=== PATIENT | female | born 1980 | race Caucasian/White ===

== ENCOUNTER 2016-06-25 17:05 | Emergency (ER) | payer MEDICAID ==
[~2016-06-25] VITALS: Ht 160 cm; Wt 78.0 kg
[~2016-06-25 17:05] MED LIST: PRED10PA2 PO; TUSSSUS2 PO; VENTAER INH; ZITHTAB PO
[2016-06-25 17:29] VITALS: BP 126/81; PULSE 95; RESP 16; TEMP 98.7; O2SAT 99
--- NOTE | 2016-06-25 19:42 | PD ---
HPI Chief Complaint: Back/ Neck Pain or Injury Time Seen by Provider: 19:41 Travel History International Travel<30 days: No Contact w/Intl Traveler<30days: No Traveled to known affect area: No History of Present Illness HPI 35-year-old female presents to the emergency department for evaluation of right- sided lower back pain for 1 day. Patient states that she was carrying a 50 pound box and lost her ear nose and throat specialist on it and it started to slip so she reached down to catch it which jerked her lower back. States that she's had pain in her lower back since this occurred. Pain is mostly on the right lower side. States that the pain is aggravated with movement of her back and her legs. Denies any alleviating factors. States she has taken [id number] Motrin and Excedrin without improvement of symptoms. Denies any prior injury or trauma to her lower back. Denies , she is status post hysterectomy. No other complaints. PFSH Past Medical History Cancer: No Cardiovascular Problems: No Diminished Hearing: No Gastrointestinal Disorders: No Genitourinary: Yes Musculoskeletal: No Neurologic: No Psychiatric: No Reproductive: Yes (Hx of ovarian cysts) Respiratory: No Migraines: Yes Tetanus Vaccination: < 5 Years Influenza Vaccination: No ?: Not : 4 Para: 2 Miscarriage: 1 : 1 Ovarian Cysts: Yes Tubal Ligation: Yes Past Surgical History Gynecologic Surgery: Yes (LEEP, FALLOPIAN TUBE) Hysterectomy: Yes Other Surgery: Yes Social History Alcohol Use: Yes (SOCIAL-beer) Tobacco Use: Yes (1/2 PPD) Substance Use: No (denies) Allergies-Medications (Allergen,Severity, Reaction): Coded Allergies: No Known Allergies (Verified , 06/25/16) Reported Meds & Prescriptions Reported Meds & Active Scripts Active Lortab (Hydrocodone-Acetaminophen) 5-325 Mg Tab 1 Tab PO Q6H PRN Robaxin (Methocarbamol) 750 Mg Tab 750 Mg PO QID 7 Days Naproxen 500 Mg Tab 500 Mg PO BID 7 Days Review of Systems Except as stated in HPI: all other systems reviewed are Neg Physical Exam Narrative GENERAL: Well-nourished and well-developed pleasant female patient in moderate amount of pain but no acute distress. SKIN: Warm and dry. HEAD: Normocephalic and atraumatic. EYES: No injection, drainage, or hyphema noted. PERRLA. EOMI. ENT: No nasal drainage noted. Oropharynx is clear. NECK: Supple and the trachea is midline. CARDIOVASCULAR: Regular rate and rhythm. RESPIRATORY: Breath sounds are equal bilaterally with no accessory muscle use, wheezing, rhonchi, or crackles. MUSCULOSKELETAL: No obvious deformities, swelling, cyanosis, or ecchymosis is present throughout the upper and lower extremities. Patient has full range of motion without any signs of neurovascular compromise. SLR positive. Strength 5 /5 upper and lower extremities equal bilaterally. BACK: Patient has tenderness to palpation of her midline lumbar spine and right lumbar paraspinal muscles. No obvious deformities or crepitus noted throughout the thoracic and lumbar vertebrae. NEUROLOGICAL: Awake, alert, and oriented. Normal speech and gait. Cranial nerves are grossly intact. Data Data Last Documented VS Vital Signs Date Time Temp Pulse Resp B/P Pulse Ox O2 Delivery O2 Flow Rate FiO2 06/25/16 19:08 95 16 06/25/16 17:29 98.7 126/81 99 Orders Acetamin-Hydrocod 325-5 Mg (Rolfe 5-325 (06/25/16 19:45) Ketorolac Inj (Toradol Inj) (06/25/16 19:45) Spine, Lumbar Comp W/Obliq (06/25/16 19:43) MDM Medical Decision Making Medical Screen Exam Complete: Yes Emergency Medical Condition: Yes Differential Diagnosis Discogenic pain versus herniated disc versus muscle strain versus muscle spasm versus compression fracture Narrative Course 35-year-old female presents to the emergency department for evaluation of low back pain status post catching a heavy box. Patient is afebrile, vital signs are stable. No focal neurologic deficits. She does have tenderness over the lumbar spine and therefore we'll get an x-ray to rule out a compression fracture. Patient is administered Toradol 60 mg IM and Lortab 5325 mg. X-ray of the lumbar spine is negative for any acute abnormalities. Patient has had some improvement of symptoms with medication. Discussed supportive care. We'll prescribe her anti-inflammatories, muscle relaxers and pain medication. She is advised to follow-up with her PCP if her symptoms persist. Patient verbalizes understanding and agreement with treatment plan. Diagnosis Primary Impression: Acute low back pain Qualified Code: M54.5 - Acute right-sided low back pain without sciatica Referrals: Primary Care Physician Patient Instructions: Acute Low Back Pain (ED), General Instructions Departure Forms: Tests/Procedures, Work Release Enter return to work date: Jun 28, 2016 Additional Instructions: Apply ice or heat to alleviate symptoms. Take medications as prescribed with food and a full glass of water. Do not take Lortab for Robaxin with alcohol or while driving. Follow-up with your Primary Care Physician. Return to the ED for any acute worsening of symptoms. Med/Other Pt SpecificInfo: Prescription(s) given Scripts Hydrocodone-Acetaminophen (Lortab)5-325 Mg Tab1 Tab PO Q6H PRN (PAIN GREATER THAN 6) #15 TAB Ref 0 Prov:Sam Naidu MD 06/25/16 Methocarbamol (Robaxin)750 Mg [id number] Mg PO QID 7 Days Ref 0 Prov:Sam Naidu MD 06/25/16 Naproxen 500 Mg Arg417 Mg PO BID 7 Days Ref 0 Prov:Sam Naidu MD 06/25/16 Disposition: 01 DISCHARGE HOME Condition: Stable Luma Neville Jun 25, 2016 19:41
[2016-06-25] MEDS ORDERED: KETOROLAC TROMETHAMINE 60 MG/2 ML (IM) VIAL IM ONE (19:45)
[2016-06-25] MEDS ORDERED: ACETAMINOPHEN/HYDROcodone 325 MG/5 MG TAB PO ONE (19:45)
--- NOTE | 2016-06-25 20:32 | RADHPO ---
EXAM DATE/TIME: 06/25/2016 19:46 [facility] COMPARISON: No previous studies available for comparison. INDICATIONS : Patient hurt her back while moving yesterday. Right sided pain. MEDICAL HISTORY : None. SURGICAL HISTORY : None. ENCOUNTER: Initial ACUITY: 2 days PAIN SCORE: 10/10 LOCATION: Right lower back. FINDINGS: The lumbar vertebral bodies are normal in height. They are normally aligned. There is some mild marginal osteophytes seen at the anterior superior aspect of L4 and to a lesser degree L5. The disc spaces are grossly preserved. The fact joints are aligned. The sacroiliac joints are nor mal. CONCLUSION: Mild marginal osteophytes. Tan Rachel MD on June 25, 2016 at 20:19 Board Certified Radiologist. This report was verified electronically.
[2016-06-25] MEDS ORDERED: NAPR500T PO (20:35)
[2016-06-25] MEDS ORDERED: HYDR-3533 PO ×2 (20:35→20:40)
[2016-06-25] MEDS ORDERED: ROBA750T PO (20:35)
== END 2016-06-25 20:54 | disposition home or self-care (01) ==
LOC: PHED 17:05 → PHEFT 20:54
DX: M54.5 Low back pain (principal); F17.200 Nicotine dependence, unspecified, uncomplicated; Z87.448 Personal history of other diseases of urinary system; Z87.42 Personal history of other diseases of the female genital tract; Z86.69 Personal history of other diseases of the nervous system and sense organs; X50.0XXA Overexertion from strenuous movement or load, initial encounter
CPT/HCPCS: 72110; 96372; 99283; J1885

== ENCOUNTER 2016-10-16 19:23 | Emergency (ER) | payer MEDICAID ==
[~2016-10-16] VITALS: Ht 172.7 cm; Wt 80.0 kg
[~2016-10-16 19:23] MED LIST changes: +HYDR-3533 PO; +NAPR500T PO; -PRED10PA2 PO; +ROBA750T PO; -TUSSSUS2 PO; -VENTAER INH; -ZITHTAB PO
[2016-10-16 19:26] VITALS: BP 128/83; PULSE 94; RESP 16; TEMP 98.5; O2SAT 99
--- NOTE | 2016-10-16 22:22 | PD ---
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 Patient says she gets frequent claire infection. 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 However this time when she tried to call her OB she found out that they did not accept her insurance anymore and hence they will not see her. She tried to take an over- the-counter Monistat suppository but patient says that made her symptoms worse. She says she is very uncomfortable with this. Vital signs otherwise stable. Patient had her hysterectomy last year. [facility] Past Medical History Narrative Medical List of her past medical, surgical, social and family history is reviewed from the nursing note. Cancer: No Cardiovascular Problems: No Diminished Hearing: No Gastrointestinal Disorders: No Genitourinary: Yes Musculoskeletal: No Neurologic: No Psychiatric: No Reproductive: Yes (Hx of ovarian cysts) Respiratory: Yes Migraines: Yes Tetanus Vaccination: Unknown Influenza Vaccination: No ?: Not : 4 Para: 2 Miscarriage: 1 : 1 Ovarian Cysts: Yes Tubal Ligation: Yes Past Surgical History Gynecologic Surgery: Yes (LEEP, FALLOPIAN TUBE) Hysterectomy: Yes Other Surgery: Yes Social History Alcohol Use: Yes (SOCIAL-beer) Tobacco Use: Yes (/2 PPD) Substance Use: No (denies) Allergies-Medications (Allergen,Severity, Reaction): Coded Allergies: No Known Allergies (Verified , 06/25/16) Comments No known drug allergies. Reported Meds & Prescriptions Reported Meds & Active Scripts Active No Active Prescriptions or Reported Medications Narrative Medication List of her home medications reviewed from the nursing note. Review of Systems Except as stated in HPI: all other systems reviewed are Neg Physical Exam Narrative GENERAL: Awake, alert, obese, moderate discomfort SKIN: Focused skin assessment warm/dry. HEAD: Atraumatic. Normocephalic. EYES: Pupils equal and round. No scleral icterus. No injection or drainage. ENT: No nasal bleeding or discharge. Mucous membranes pink and moist. NECK: Trachea midline. No JVD. CARDIOVASCULAR: Regular rate and rhythm. No murmur appreciated. RESPIRATORY: No accessory muscle use. Clear to auscultation. Breath sounds equal bilaterally. GASTROINTESTINAL: Abdomen soft, non-tender, nondistended. Hepatic and splenic margins not palpable. MUSCULOSKELETAL: No obvious deformities. No clubbing. No cyanosis. No edema. : External inspection was within normal limit. Speculum exam shows absent cervix due to the hysterectomy. There is thick cheesy discharge in the vaginal vault. NEUROLOGICAL: Awake and alert. No obvious cranial nerve deficits. Motor grossly within normal limits. Normal speech. PSYCHIATRIC: Appropriate mood and affect; insight and judgment normal. Data Data Last Documented VS Vital Signs Date Time Temp Pulse Resp B/P Pulse Ox O2 Delivery O2 Flow Rate FiO2 10/16/16 21:32 16 10/16/16 19:26 98.5 94 128/83 99 Orders Wet Prep Profile (10/16/16 22:24) Fluconazole (Diflucan) (10/16/16 23:45) Labs Laboratory Tests Test 10/16/16 23:30 Clue Cells (Wet Prep) NONE SEEN Vaginal Trichomonas (Wet Prep) NONE SEEN Vaginal Yeast (Wet Prep) NONE SEEN MDM Medical Decision Making Medical Screen Exam Complete: Yes Emergency Medical Condition: Yes Medical Record Reviewed: Yes Differential Diagnosis Vaginal candidiasis, vaginitis Narrative Course 12:21 AM patient was given 1 dose of Diflucan by mouth in the emergency room. She'll be discharged home. Procedures EKG Prior to Arrival: No Diagnosis Primary Impression: Vaginal candidiasis Referrals: Primary Care Physician Additional Instructions: Please return to the ER if the condition worsens or any other new concerns. Try to keep the area dry by wearing loose clothing. Scripts No Active Prescriptions or Reported Meds Disposition: 01 DISCHARGE HOME Condition: Stable Yogesh Pereira MD Oct 16, 2016 22:22 Yogesh Pereira MD Oct 16, 2016 22:22
[2016-10-16] MEDS ORDERED: FLUCONAZOLE 100 MG TAB PO ONE (23:45)
[2016-10-18] MEDS ORDERED: CLOT1CRE23 VAGINAL (21:49)
[2016-10-18] MEDS ORDERED: VIST50CA PO (21:49)
[2016-10-18] MEDS ORDERED: TRIA0.1L TOPICAL (21:49)
== END 2016-10-17 00:27 | disposition home or self-care (01) ==
LOC: NEPD 19:23
DX: B37.3 Candidiasis of vulva and vagina (principal); F17.210 Nicotine dependence, cigarettes, uncomplicated
CPT/HCPCS: 87210; 87491; 87591; 99283

== ENCOUNTER 2016-10-18 21:17 | Emergency (ER) | payer MEDICAID ==
[~2016-10-18] VITALS: Ht 160 cm; Wt 80.0 kg
[2016-10-18 21:21] VITALS: BP 134/97; PULSE 89; RESP 16; TEMP 98.1; O2SAT 100
--- NOTE | 2016-10-18 21:45 | PD ---
HPI . 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 She has used Monistat [id number] which actually made her symptoms worse. She was then seen in the emergency department and given Diflucan 2 days ago. She states that her symptoms continued to get worse rather than better. She is complaining of severe vaginal itching. She has not used any other over-the- counter or homeopathic treatments such as Benadryl, cool compresses. Patient is unaware of any exacerbating or relieving factors. PFSH Past Medical History Cancer: No Cardiovascular Problems: No Diminished Hearing: No Gastrointestinal Disorders: No Genitourinary: Yes Musculoskeletal: No Neurologic: No Psychiatric: No Reproductive: Yes (Hx of ovarian cysts) Respiratory: Yes Migraines: Yes ?: Not : 4 Para: 2 Miscarriage: 1 : 1 Ovarian Cysts: Yes Tubal Ligation: Yes Past Surgical History Gynecologic Surgery: Yes (LEEP, FALLOPIAN TUBE) Hysterectomy: Yes Other Surgery: Yes Social History Alcohol Use: Yes (SOCIAL-beer) Tobacco Use: Yes (1/2 PPD) Substance Use: No (denies) Allergies-Medications (Allergen,Severity, Reaction): Coded Allergies: No Known Allergies (Verified , 10/18/16) Reported Meds & Prescriptions Reported Meds & Active Scripts Active No Active Prescriptions or Reported Medications Review of Systems Except as stated in HPI: all other systems reviewed are Neg General / Constitutional: No: Fever, Chills Genitourinary: Positive: Discharge, No: Pelvic Pain Physical Exam Narrative GENERAL: Awake and alert and in no acute distress. The patient looks pretty uncomfortable. SKIN: Warm and dry. HEAD: Atraumatic. Normocephalic. EYES: Pupils equal and round. NECK: Trachea midline. CARDIOVASCULAR: Regular rate and rhythm. RESPIRATORY: No accessory muscle use. : She has erythema and edema of the external genitalia. She has a thick, cottage cheese-like discharge. MUSCULOSKELETAL: No obvious deformities. No edema. NEUROLOGICAL: Awake and alert. No obvious cranial nerve deficits. Motor grossly within normal limits. Normal speech. PSYCHIATRIC: Appropriate mood and affect; insight and judgment normal. Data Data Last Documented VS Vital Signs Date Time Temp Pulse Resp B/P Pulse Ox O2 Delivery O2 Flow Rate FiO2 10/18/16 21:21 98.1 89 16 134/97 100 MDM Medical Decision Making Medical Screen Exam Complete: Yes Emergency Medical Condition: Yes Medical Record Reviewed: Yes (patient was seen 2 days ago in the emergency department. She had a wet prep at that time which was negative. That study will not be repeated tonight.) Differential Diagnosis Differential diagnosis of vaginal discharge includes but is not limited to physiologic discharge, yeast infection, bacterial vaginosis, sexually transmitted disease. Narrative Course Patient presents with vaginal discharge and itching. Her exam is compatible with yeast infection. Diagnosis Primary Impression: Vaginal candidiasis Patient Instructions: General Instructions, Vaginitis (ED) Departure Forms: Tests/Procedures Med/Other Pt SpecificInfo: Prescription(s) given Scripts Hydroxyzine Pamoate (Vistaril)50 Mg Cap50 Mg PO QID PRN (itching) #30 CAP Ref 0 Prov:Leti Caceres MD 10/18/16 Triamcinolone Topical 0.1% Lotn1 Applic TOPICAL QID #60 ML Ref 0 Prov:Leti Caceres MD 10/18/16 Clotrimazole Vaginal (Clotrimazole 7 Vaginal)1% Cream1 Appl VAGINAL HS #45 GM Ref 0 Prov:Leti Caceres MD 10/18/16 Disposition: 01 DISCHARGE HOME Condition: Stable Leti Caceres MD Oct 18, 2016 21:45
[2016-10-18] MEDS ORDERED: CLOT1CRE23 VAGINAL (21:49)
[2016-10-18] MEDS ORDERED: VIST50CA PO (21:49)
[2016-10-18] MEDS ORDERED: TRIA0.1L TOPICAL (21:49)
[2016-10-18] MEDS ORDERED: TRIAMCINOLONE ACETONIDE 0.1% CREAM 15 GM TOPICAL ONE (22:00)
== END 2016-10-18 22:19 | disposition home or self-care (01) ==
LOC: PHED 21:17
DX: B37.3 Candidiasis of vulva and vagina (principal); F17.210 Nicotine dependence, cigarettes, uncomplicated
CPT/HCPCS: 99284

== ENCOUNTER 2017-01-09 10:40 | Emergency (ER) | payer MEDICAID ==
[~2017-01-09] VITALS: Ht 160 cm; Wt 79.0 kg
[~2017-01-09 10:40] MED LIST changes: +CLOT1CRE23 VAGINAL; -HYDR-3533 PO; -NAPR500T PO; -ROBA750T PO; +TRIA0.1L TOPICAL; +VIST50CA PO
[2017-01-09 10:42] VITALS: BP 147/94; PULSE 96; RESP 16; TEMP 98.6; O2SAT 99
[2017-01-09] MEDS ORDERED: IBUP-232 PO (11:28)
[2017-01-09] MEDS ORDERED: ROBA750T PO (11:28)
--- NOTE | 2017-01-09 11:39 | PD ---
HPI Chief Complaint: Musculoskeletal Complaint Time Seen by Provider: 11:20 Travel History International Travel<30 days: No Contact w/Intl Traveler<30days: No Traveled to known affect area: No History of Present Illness HPI 36-year-old right-handed female presents to the emergency room for evaluation of right hand pain for the past several weeks but worsened 4 days ago. 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 She took 3 days off of work because the pain was so severe but states it hasn't been improving. Patient has been taking Tylenol and Motrin without relief. States she could not longer take the pain that she came to the emergency room. She also had pain in her left hand but states right hand is worse. Left hand pain is localized to the knuckles. Right hand pain is generalized. Patient states she occasionally wakes up with her hand well closed and she has to pop it back open. This especially happens with her right fourth finger. No chronic medical conditions or daily medications. PFSH Past Medical History Cancer: No Cardiovascular Problems: No Diminished Hearing: No Gastrointestinal Disorders: No Genitourinary: Yes Musculoskeletal: No Neurologic: No Psychiatric: No Reproductive: Yes (Hx of ovarian cysts) Respiratory: Yes Migraines: Yes Tetanus Vaccination: > 5 Years Influenza Vaccination: No ?: Not : 4 Para: 2 Miscarriage: 1 : 1 Ovarian Cysts: Yes Tubal Ligation: Yes Past Surgical History Gynecologic Surgery: Yes (LEEP, FALLOPIAN TUBE) Hysterectomy: Yes Other Surgery: Yes Social History Alcohol Use: Yes (Occ.) Tobacco Use: Yes (1/2 PPD) Substance Use: No Allergies-Medications (Allergen,Severity, Reaction): Coded Allergies: No Known Allergies (Verified , 01/09/17) Reported Meds & Prescriptions Reported Meds & Active Scripts Active Ibuprofen 600 Mg Tab 600 Mg PO Q8HR PRN Robaxin (Methocarbamol) 750 Mg Tab 750 Mg PO Q8HR Review of Systems Except as stated in HPI: all other systems reviewed are Neg Physical Exam Narrative GENERAL: Well-nourished, well-developed female in no acute distress. Afebrile. Ambulatory. SKIN: Focused skin assessment warm/dry. No erythema or ecchymosis. HEAD: Normocephalic. EYES: No scleral icterus. No injection or drainage. NECK: Supple, trachea midline. No JVD or lymphadenopathy. CARDIOVASCULAR: Regular rate and rhythm without murmurs, gallops, or rubs. RESPIRATORY: Breath sounds equal bilaterally. No accessory muscle use. MUSCULOSKELETAL: No cyanosis, or edema. 2+ radial pulse. Less than 2 second capillary refill distally. Full range of motion of the right hand. No bony tenderness to palpation. Radial, ulnar, and median nerves intact. Strength 4/ 5 secondary to pain. Data Data Last Documented VS Vital Signs Date Time Temp Pulse Resp B/P (MAP) Pulse Ox O2 Delivery O2 Flow Rate FiO2 01/09/17 10:42 98.6 96 16 147/94 (111) 99 Orders Orders Splint Or Brace Apply/Monitor (01/09/17 11:28) MDM Medical Decision Making Medical Screen Exam Complete: Yes Emergency Medical Condition: Yes Medical Record Reviewed: Yes Differential Diagnosis Tenosynovitis, carpal tunnel syndrome, trigger finger Narrative Course 36 year-old right handed female presents to the emergency room for evaluation of right hand pain and spasming for the past 4 days. 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 She has tried uuky-ohy-kpuaovd conservative treatment without success. States pain is severe. Occasionally her fingers get locked in a closed position and she has to pop them back open, especially the right fourth finger. No trauma or injury. Right upper x-ray is neurovascularly intact with 2+ radial pulse. Radial, ulnar, and median nerves intact. Full range of motion. No indication for imaging. History and physical exam are consistent with trigger finger. Patient will be treated for possible muscle spasms. She was placed in Velcro wrist splint and told to follow-up with a primary care physician for cortisone injections into the finger and referral to hand surgeon. Told to return for worsening symptoms. She understands and agrees to plan. Diagnosis Primary Impression: Trigger finger Qualified Codes: M65.341 - Trigger finger, right ring finger Additional Impression: Muscle spasm Referrals: Primary Care Physician Additional Instructions: Rest and drink plenty of fluids. Take Robaxin as directed, as needed for pain. Take ibuprofen with food as directed, as needed for pain. Apply ice to the affected area for 20 minutes at a time, as needed for pain and swelling. Follow-up with a primary care physician. Return to the emergency room for worsening symptoms. Med/Other Pt SpecificInfo: Prescription(s) given Scripts Ibuprofen (Ibuprofen) 600 Mg Tab 600 MG PO Q8HR Y for PAIN, #21 TAB 0 Refills Prov: Yogesh Pereira MD 01/09/17 Methocarbamol (Robaxin) 750 Mg Tab 750 MG PO Q8HR for Muscle Spasm, #21 TAB 0 Refills Prov: Yogesh Pereira MD 01/09/17 Disposition: 01 DISCHARGE HOME Condition: Stable Yuly Ponce Jan 09, 2017 11:39
== END 2017-01-09 11:50 | disposition home or self-care (01) ==
LOC: PHEFT 10:40
DX: M65.341 Trigger finger, right ring finger (principal); M62.838 Other muscle spasm; F17.210 Nicotine dependence, cigarettes, uncomplicated
CPT/HCPCS: 99283; L3908

== ENCOUNTER 2017-01-16 16:11 | Emergency (ER) | payer MEDICAID ==
[~2017-01-16] VITALS: Ht 160 cm; Wt 81.0 kg
[~2017-01-16 16:11] MED LIST changes: -CLOT1CRE23 VAGINAL; +IBUP-232 PO; +ROBA750T PO; -TRIA0.1L TOPICAL; -VIST50CA PO
[2017-01-16 16:34] VITALS: BP 157/81; PULSE 99; RESP 16; TEMP 98.4; O2SAT 99
[2017-01-16] MEDS ORDERED: CYCL1TAB29 PO (17:00)
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
== END 2017-01-16 17:07 | disposition home or self-care (01) ==
LOC: PHEFT 16:11
DX: G56.01 Carpal tunnel syndrome, right upper limb (principal); F17.210 Nicotine dependence, cigarettes, uncomplicated
CPT/HCPCS: 99281

== ENCOUNTER 2017-01-24 17:37 | Observation (INO) | payer MEDICAID ==
[~2017-01-24] VITALS: Ht 160 cm; Wt 88.3 kg
[~2017-01-24 17:37] MED LIST changes: +CYCL1TAB29 PO
[2017-01-24 17:44] VITALS: BP 131/74; PULSE 116; RESP 20; TEMP 98.1; O2SAT 99
[2017-01-24 19:23] VITALS: BP 131/80; PULSE 120; RESP 18; O2SAT 99
[2017-01-24 19:51] LABS: AUTOMATED NEUTROPHIL # 6.3 TH/MM3 (1.8-7.7); BASOPHIL # 0.1 TH/MM3 (0-0.2); BASOPHIL % 0.8 % (0.0-2.0); EOSINOPHIL # 0.2 TH/MM3 (0-0.4); EOSINOPHIL % 2.3 % (0.0-4.0); HEMATOCRIT 41.7 % (35.0-46.0); HEMO FLAGS DIFF FINAL; LYMPH % 16.1 % (9.0-44.0); LYMPHOCYTE # 1.4 TH/MM3 (1.0-4.8); MEAN CELL VOLUME 92.6 FL (80.0-100.0); MEAN CORPUSCULAR HEMOGLOBIN 32.1 PG (27.0-34.0); MEAN CORPUSCULAR HGB CONC 34.7 % (32.0-36.0); MONO % 7.5 % (0.0-8.0); NEUT % 73.3 % (16.0-70.0); PLATELET COUNT 233 TH/MM3 (150-450); RED CELL DISTRIBUTION WIDTH 12.1 % (11.6-17.2); WHITE BLOOD COUNT 8.6 TH/MM3 (4.0-11.0)
[2017-01-24] MEDS ORDERED: SODIUM CHLOR 0.9% 1000 ML INJ 1,000 ML IV ONE ×2 (20:00→22:00)
[2017-01-24] MEDS ORDERED: ONDANSETRON HCL 4 MG/2 ML VIAL IV PUSH ONE (20:00)
[2017-01-24] MEDS ORDERED: MORPHINE SULFATE 4 MG/ML INJ IV PUSH ONE (20:00)
[2017-01-24 20:04] LABS: CHLORIDE 103 MEQ/L (98-107); POTASSIUM 3.5 MEQ/L (3.5-5.1); SODIUM (NA) 136 MEQ/L (136-145)
[2017-01-24 20:08] LABS: ANION GAP 8 MEQ/L (5-15); BICARBONATE 25.3 MEQ/L (21.0-32.0)
[2017-01-24 20:09] LABS: BLOOD UREA NITROGEN 10 MG/DL (7-18)
[2017-01-24 20:11] LABS: ALT (GPT) 81 U/L (10-53); AST (GOT) 38 U/L (15-37)
[2017-01-24 20:12] LABS: GLOMERULAR FILTRATION RATE 79 ML/MIN (>89)
[2017-01-24 20:13] LABS: TOTAL BILIRUBIN ADULT 0.5 MG/DL (0.2-1.0)
[2017-01-24 20:14] LABS: ALKALINE PHOSPHATASE 94 U/L (45-117)
[2017-01-24 20:53] LABS: BLOOD, URINE LARGE (NEG); GLUCOSE,URINE NEG (NEG); KETONE, URINE NEG (NEG); NITRITE,URINE POS (NEG); PH, URINE 5.5 (5.0-8.5)
[2017-01-24 20:57] LABS: URINE COLOR YELLOW (YELLW/STRAW)
[2017-01-24 20:58] LABS: WBC, URINE 100-200 /hpf (0-5)
[2017-01-24 20:59] LABS: BACTERIA, URINE MANY /hpf; COMMENT (UR) CULTURE INDICATED; CULTURE IF INDICATED CULTURE INDICATED; SQUAMOUS EPITHELIAL CELL URINE > 8 /hpf (0-5)
[2017-01-24] MEDS ORDERED: cefTRIAXone INJ 1,000 MG in SODIUM CHLORIDE 0.9% INJ 100 ML IV ONE (21:15)
[2017-01-24] MEDS ORDERED: KETOROLAC TROMETHAMINE 30 MG/ML (IVP) VIAL IV PUSH ONE (21:15)
[2017-01-24 21:27] VITALS: BP 95/67; PULSE 87; RESP 16; TEMP 98.7; O2SAT 100
--- NOTE | 2017-01-24 21:53 | PD ---
HPI Chief Complaint: Abdominal Pain Time Seen by Provider: 19:49 Travel History International Travel<30 days: No Contact w/Intl Traveler<30days: No Traveled to known affect area: No History of Present Illness HPI 36-year-old female presents to the emergency department for complaint of left lower quadrant abdominal pain and left flank pain since last evening. Subjective chills no fever. Nausea no vomiting. Diarrhea without melena or hematochezia. Patient denies any dietary indiscretion well water ingestion or foreign travel. Patient denies any dysuria frequency urgency hematuria. No vaginal discharge or vaginal bleeding. Patient reports history of ovarian cancer and underwent complete total vaginal hysterectomy salpingo-oophorectomy and reportedly did not require chemotherapy or radiation therapy. Patient denies any previous history of colitis or diverticulosis or diverticulitis. No respiratory illness symptoms. PFSH Past Medical History Narrative Medical Ovarian cyst menorrhagia elective TV 2016 path negative for malignancy; tobacco use Cancer: No Cardiovascular Problems: No Diminished Hearing: No Gastrointestinal Disorders: No Genitourinary: Yes Musculoskeletal: No Neurologic: No Psychiatric: No Reproductive: Yes (Hx of ovarian cysts) Respiratory: Yes Migraines: Yes Tetanus Vaccination: > 5 Years Influenza Vaccination: Yes ?: Not : 4 Para: 2 Miscarriage: 1 : 1 Ovarian Cysts: Yes Tubal Ligation: Yes Past Surgical History Gynecologic Surgery: Yes (LEEP, FALLOPIAN TUBE) Hysterectomy: Yes Other Surgery: Yes Social History Alcohol Use: Yes (Occ.) Tobacco Use: Yes (1/2 PPD) Substance Use: No Allergies-Medications (Allergen,Severity, Reaction): Coded Allergies: No Known Allergies (Verified , 01/24/17) Reported Meds & Prescriptions Reported Meds & Active Scripts Active Flexeril (Cyclobenzaprine HCl) 10 Mg Tab 10 Mg PO TID Ibuprofen 600 Mg Tab 600 Mg PO Q8HR PRN Robaxin (Methocarbamol) 750 Mg Tab 750 Mg PO Q8HR Review of Systems Except as stated in HPI: all other systems reviewed are Neg General / Constitutional: No: Fever, Chills HENT: No: Congestion Cardiovascular: No: Chest Pain or Discomfort Respiratory: No: Shortness of Breath Gastrointestinal: Positive: Nausea, Diarrhea, Abdominal Pain (LLQ) Genitourinary: Positive: Flank Pain (left), No: Urgency, Frequency, Dysuria, Hematuria, Decreased Urinary Output, Pelvic Pain, Discharge, Vaginal Bleeding Musculoskeletal: No: Myalgias, Arthralgias Skin: No Rash Neurologic: No: Weakness Endocrine: No: Heat Intolerance Hematologic/Lymphatic: No: Easy Bruising Physical Exam Narrative GENERAL: Well-developed well-nourished female in no acute distress no respiratory distress SKIN: Warm and dry. HEAD: Normocephalic. EYES: No scleral icterus. No injection or drainage. NECK: Supple, trachea midline. No JVD or lymphadenopathy. CARDIOVASCULAR: Regular rate and rhythm without murmurs, gallops, or rubs. RESPIRATORY: Breath sounds equal bilaterally. No accessory muscle use. GASTROINTESTINAL: Abdomen soft, left lower quadrant tenderness to palpation without guarding or rebound nondistended. MUSCULOSKELETAL: No cyanosis, or edema. BACK: Nontender without obvious deformity. Mild left CVA tenderness. Data Data Last Documented VS Vital Signs Date Time Temp Pulse Resp B/P (MAP) Pulse Ox O2 Delivery O2 Flow Rate FiO2 01/24/17 21:27 98.7 87 16 95/67 (76) 100 01/24/17 19:23 Room Air Orders Orders Complete Blood Count With Diff (01/24/17 19:32) Comprehensive Metabolic Panel (01/24/17 19:32) Urinalysis - C+S If Indicated (01/24/17 19:32) Iv Access Insert/Monitor (01/24/17 19:32) Lipase (01/24/17 19:32) Sodium Chlor 0.9% 1000 Ml Inj (Ns 1000 M (01/24/17 20:00) Ondansetron Inj (Zofran Inj) (01/24/17 20:00) Morphine Inj (Morphine Inj) (01/24/17 20:00) Urine Culture (01/24/17 20:45) Ct Abd/Pel W/O Iv Contrast (01/24/17 ) Ceftriaxone Inj (Rocephin Inj) (01/24/17 21:15) Ketorolac Inj (Toradol Inj) (01/24/17 21:15) Sodium Chlor 0.9% 1000 Ml Inj (Ns 1000 M (01/24/17 22:00) Labs Laboratory Tests Test 01/24/17 19:30 01/24/17 20:45 White Blood Count 8.6 TH/MM3 Red Blood Count 4.50 MIL/MM3 Hemoglobin 14.5 GM/DL Hematocrit 41.7 % Mean Corpuscular Volume 92.6 FL Mean Corpuscular Hemoglobin 32.1 PG Mean Corpuscular Hemoglobin Concent 34.7 % Red Cell Distribution Width 12.1 % Platelet Count 233 TH/MM3 Mean Platelet Volume 7.9 FL Neutrophils (%) (Auto) 73.3 % Lymphocytes (%) (Auto) 16.1 % Monocytes (%) (Auto) 7.5 % Eosinophils (%) (Auto) 2.3 % Basophils (%) (Auto) 0.8 % Neutrophils # (Auto) 6.3 TH/MM3 Lymphocytes # (Auto) 1.4 TH/MM3 Monocytes # (Auto) 0.6 TH/MM3 Eosinophils # (Auto) 0.2 TH/MM3 Basophils # (Auto) 0.1 TH/MM3 CBC Comment DIFF FINAL Differential Comment Blood Urea Nitrogen 10 MG/DL Creatinine 0.83 MG/DL Random Glucose 106 MG/DL Total Protein 8.2 GM/DL Albumin 3.4 GM/DL Calcium Level 8.3 MG/DL Alkaline Phosphatase 94 U/L Aspartate Amino Transf (AST/SGOT) 38 U/L Alanine Aminotransferase (ALT/SGPT) 81 U/L Total Bilirubin 0.5 MG/DL Sodium Level 136 MEQ/L Potassium Level 3.5 MEQ/L Chloride Level 103 MEQ/L Carbon Dioxide Level 25.3 MEQ/L Anion Gap 8 MEQ/L Estimat Glomerular Filtration Rate 79 ML/MIN Lipase 83 U/L Urine Color YELLOW Urine Turbidity CLOUDY Urine pH 5.5 Urine Specific [place] 1.017 Urine Protein TRACE mg/dL Urine Glucose (UA) NEG mg/dL Urine Ketones NEG mg/dL Urine Occult Blood LARGE Urine Nitrite POS Urine Bilirubin NEG Urine Leukocyte Esterase LARGE Urine RBC 10-14 /hpf Urine WBC 100-200 /hpf Urine WBC Clumps FEW Urine Squamous Epithelial Cells > 8 /hpf Urine Bacteria MANY /hpf Urine Hyaline Casts /lpf Microscopic Urinalysis Comment CULTURE INDICATED MDM Medical Decision Making Medical Screen Exam Complete: Yes Emergency Medical Condition: Yes Medical Record Reviewed: Yes Interpretation(s) UA: Positive white blood cells clumped white blood cells bacteria RBCs leukocyte Estrace and nitrites; culture indicated Last Impressions Abdomen/Pelvis CT 01/24/17 0000 Signed Impressions: Service Date/Time: January 21:33 - CONCLUSION: Mild hydronephrosis, hydroureter and perinephric edema on the left of unclear etiology. The differential would include a recently passed calculus, a radiolucent stone and pyelonephritis. Tan Louie MD CBC & BMP Diagram 01/24/17 19:30 Total Protein 8.2, Albumin 3.4, Calcium Level 8.3 L, Alkaline Phosphatase 94, Aspartate Amino Transf (AST/SGOT) 38 H, Alanine Aminotransferase (ALT/SGPT) 81 H , Total Bilirubin 0.5 Vital Signs Date Time Temp Pulse Resp B/P (MAP) Pulse Ox O2 Delivery O2 Flow Rate FiO2 01/24/17 21:27 98.7 87 16 95/67 (76) 100 01/24/17 19:23 120 18 131/80 (97) 99 Room Air 01/24/17 17:44 98.1 116 20 131/74 (93) 99 Differential Diagnosis UTI, pyelonephritis, renal colic, diverticulitis, colitis, abscess, partial bowel obstruction, gastroenteritis, musculoskeletal pain Narrative Course IV access obtained specimens collected and sent for resulting CBC is automated differential values in normal range Metabolic panel eyes are grossly within normal limits Urinalysis is markedly abnormal with positive nitrates leukocyte Estrace WBCs clumped WBCs RBCs moderate bacteria culture indicated CT kidney stone protocol ordered @ 10:[address] kidney stone protocol shows some mild stranding about the left kidney mild hydronephrosis and hydroureter no obvious kidney stone ureterolithiasis identified possibly recently passed stone v non-radiopaque stone and pyelonephritis. Sepsis Criteria SIRS Criteria (2 or more): Heart rate over 90 Sepsis Criteria (SIRS+source): Infect source susp/known (urine) Melanie Rodriguez MD Jan 24, 2017 21:53
--- NOTE | 2017-01-24 21:55 | RADRPT ---
EXAM DATE/TIME: 01/24/2017 21:33 [facility] COMPARISON: CT ABDOMEN & PELVIS W/O CONTRAST, July 21, 2014, 1:58. INDICATIONS : Left lower quad and flank pain. ORAL CONTRAST: No oral contrast ingested. RADIATION DOSE: 14.91 CTDIvol (mGy) MEDICAL HISTORY : Ovarian cysts SURGICAL HISTORY : Hysterectomy. LEEP ENCOUNTER: Initial ACUITY: 1 day PAIN SCALE: 10/10 LOCATION: Left lower quadrant TECHNIQUE: Volumetric scanning of the abdomen and pelvis was performed. Using automated exposure control and ad justment of the mA and/or kV according to patient size, radiation dose was kept as low as reasonably achievable to obtain optimal diagnostic quality images. DICOM format image data is available electro nically for review and comparison. FINDINGS: LOWER LUNGS: The visualized lower lungs are clear. LIVER: Homogeneous density without lesion. There is no dilation of the biliary tree. No calcified gallston es. SPLEEN: Normal size without lesion. PANCREAS: Within normal limits. KIDNEYS: Very mild fat stranding seen around the left kidney. The left collecting system and ureter are mildly prominent. However, I don't see a stone. 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 ADRENAL GLANDS: Within normal limits. VASCULAR: There is no aortic aneurysm. BOWEL/MESENTERY: The stomach, small bowel, and colon demonstrate no acute abnormality. There is no free intraperitone al air or fluid. Normal appendix. ABDOMINAL WALL: Within normal limits. RETROPERITONEUM: There is no lymphadenopathy. BLADDER: No wall thickening or mass. No stone seen in the bladder. REPRODUCTIVE: Within normal limits. INGUINAL: There is no lymphadenopathy or hernia. MUSCULOSKELETAL: Within normal limits for patient age. CONCLUSION: Mild hydronephrosis, hydroureter and perinephric edema on the left of unclear etiology. The different ial would include a recently passed calculus, a radiolucent stone and pyelonephritis. Tan Louie MD on January 24, 2017 at 21:51 Board Certified Radiologist. This report was verified electronically.
[2017-01-24 22:29] VITALS: BP 127/85; PULSE 86; RESP 18; TEMP 98.7
[2017-01-24] MEDS ORDERED: SODIUM CHLORIDE 0.9% FLUSH 10 ML FLUSH IV FLUSH PRN (22:30)
[2017-01-24] MEDS ORDERED: NALOXONE HCL 0.4 MG/ML AMP IV PUSH PRN (22:30)
[2017-01-24] MEDS ORDERED: SODIUM CHLORIDE 0.9% FLUSH 10 ML FLUSH IVF PRN (22:30)
[2017-01-24 23:20] VITALS: BP 102/62; PULSE 83; RESP 16; O2SAT 100
[2017-01-25] VITALS (9 sets, daily range): BP systolic 107–172; BP diastolic 62–84; PULSE 78–89; RESP 16–20; TEMP 97.1–97.9; O2SAT 99–100
[2017-01-25] MEDS: SODIUM CHLOR 0.9% 1000 ML INJ 1,000 ML IV SCH ×2 (01:00→08:05)
[2017-01-25] MEDS: CIPROFLOXACIN 400 MG PREMIX 200 ML IV SCH ×3 (01:00→22:37)
[2017-01-25 06:00] LABS: AUTOMATED NEUTROPHIL # 4.3 TH/MM3 (1.8-7.7); BASOPHIL # 0.1 TH/MM3 (0-0.2); BASOPHIL % 0.9 % (0.0-2.0); EOSINOPHIL # 0.2 TH/MM3 (0-0.4); EOSINOPHIL % 3.5 % (0.0-4.0); HEMATOCRIT 35.7 % (35.0-46.0); HEMO FLAGS DIFF FINAL; LYMPHOCYTE # 1.5 TH/MM3 (1.0-4.8); MEAN CELL VOLUME 92.2 FL (80.0-100.0); MEAN CORPUSCULAR HGB CONC 34.7 % (32.0-36.0); MONO % 10.9 % (0.0-8.0); NEUT % 62.7 % (16.0-70.0); PLATELET COUNT 179 TH/MM3 (150-450); RED BLOOD COUNT 3.87 MIL/MM3 (4.00-5.30); WHITE BLOOD COUNT 6.9 TH/MM3 (4.0-11.0)
[2017-01-25 06:14] LABS: POTASSIUM 3.3 MEQ/L (3.5-5.1)
[2017-01-25] MEDS: MORPHINE SULFATE 4 MG/ML INJ IV PUSH PRN ×4 (06:42→20:38)
[2017-01-25 06:45] LABS: BICARBONATE 23.7 MEQ/L (21.0-32.0)
[2017-01-25] MEDS: SODIUM CHLORIDE 0.9% FLUSH 10 ML FLUSH IV FLUSH SCH ×4 (08:06→20:01)
[2017-01-25] MEDS: NICOTINE 14 MG/24 HR PATCH T-DERMAL SCH (10:04)
--- NOTE | 2017-01-25 11:01 | HHI.HP ---
[facility] Service [facility] Primary Care Physician No Primary Care Physician Admission Diagnosis pyelonephritis Diagnoses: (1) Left flank pain Diagnosis: Principal (2) Hydronephrosis Diagnosis: Principal (3) Hydroureter Diagnosis: Principal (4) Urinary tract infection Diagnosis: Principal (5) Hypokalemia Diagnosis: Principal Chief Complaint: Left flank pain Travel History International Travel<30 Days: No Contact w/Intl Traveler <30 Da: No Traveled to Known Affected Are: No History of Present Illness Written by Isidoro Kaye, acting as scribe for Dr. Rincon on 01/25/17 at 10:40. 36-year-old female with no significant chronic medical illnesses who presented to hospital because acute onset left flank pain. Patient states that she was in her normal state of health until 3 days ago when she had an episode of diarrhea in which she went to the restroom 5 times. After that she started developing some left flank pain and she laid down that evening. She had a difficult time sleeping and when she got up the next day she took her son to school and was not able to do anything throughout the day because of the flank pain. When her came home she came to the hospital for evaluation. The pain was described as a intermittent colic type pain in the left flank, pain started in the left lower abdomen and radiated up to the left flank. She had some nausea, denied any fever, chills, hematuria. She did have some dysuria. She states that she has not had any recurrent diarrhea. She has had a normal bowel movement. Patient had workup done in emergency department and CT scan did show hydronephrosis, hydroureter, perinephritic edema. This possibly could be related to a passed stone, radiolucent stone, and possible pyelonephritis. It was recommended by ER physician that the patient be observed in the hospital for further evaluation and management. Review of Systems Gastrointestinal: COMPLAINS OF: Abdominal pain, Diarrhea Genitourinary: COMPLAINS OF: Dysuria Except as stated in HPI: all other systems reviewed are Neg Past Family Social History Past Medical History Carpal tunnel Trigger finger History of ovarian cysts Past Surgical History Hysterectomy Leep procedure Reported Medications Reported Meds & Active Scripts Active Flexeril (Cyclobenzaprine HCl) 10 Mg Tab 10 Mg PO TID Ibuprofen 600 Mg Tab 600 Mg PO Q8HR PRN Robaxin (Methocarbamol) 750 Mg Tab 750 Mg PO Q8HR Allergies: Coded Allergies: No Known Allergies (Verified , 01/24/17) Family History Reviewed is significant for mother alive at age 54 with hypertension and Leomyoma sarcoma, father alive at age 57 with dementia Social History Patient continues smoke a half pack a cigarettes a day since she was 20 years old. Drinks alcohol occasionally. Denies any illicit drugs Physical Exam Vital Signs Vital Signs Date Time Temp Pulse Resp B/P (MAP) Pulse Ox O2 Delivery O2 Flow Rate FiO2 01/25/17 08:00 97.1 89 20 118/79 (92) 100 01/25/17 07:38 01/25/17 06:43 78 16 172/77 (108) 99 Room Air 01/25/17 05:41 87 16 107/62 (77) 100 Room Air 01/25/17 01:30 86 16 108/70 (83) 100 Room Air 01/25/17 01:30 100 21 01/24/17 23:20 83 16 102/62 (75) 100 Room Air 01/24/17 22:29 98.7 86 18 127/85 (99) Room Air 01/24/17 21:27 98.7 87 16 95/67 (76) 100 01/24/17 19:23 120 18 131/80 (97) 99 Room Air 01/24/17 17:44 98.1 116 20 131/74 (93) 99 Physical Exam GENERAL: Well-developed, well-nourished, in no acute distress. alert and orientated HEENT: Head is normocephalic without any lesions or masses noted. Facial features are symmetric. Eyes: Pupils equal round reactive to light. Extraocular muscles are intact. Conjunctivae were clear. Oropharyngeal: Pharynx without any erythema edema. Tongue is midline without deviation. Buccal mucosa is moist without any masses or lesions NECK: Supple without any masses. Trachea midline no deviation. No JVD, no bruits are appreciated CARDIAC: Regular rhythm, regular rate. S1/S2 are heard. No murmurs gallops or rubs. LUNGS: Clear to auscultation bilaterally. No wheeze, rhonchi or rales. No use of accessory muscles on inspiration or expiration. ABDOMEN: Soft, tenderness noted in left lower quadrant and left flank. Positive CVA tenderness on left side. Nondistended. Bowel sounds heard in all 4 quadrants. No organomegaly or masses. Negative rebound, negative guarding EXTREMITIES: No edema, pulses are equal bilaterally. No cyanosis or clubbing NEUROLOGY: Mood and affect appear appropriate. Cranial nerves II through XII grossly intact. Muscle strength 5/5 in upper and lower extremities bilaterally. Deep tendon reflexes are 2+ in upper and lower extremities bilaterally. Laboratory Laboratory Tests Test 01/24/17 19:30 01/24/17 20:45 01/25/17 05:35 White Blood Count 8.6 6.9 Red Blood Count 4.50 3.87 Hemoglobin 14.5 12.4 Hematocrit 41.7 35.7 Mean Corpuscular Volume 92.6 92.2 Mean Corpuscular Hemoglobin 32.1 32.0 Mean Corpuscular Hemoglobin Concent 34.7 34.7 Red Cell Distribution Width 12.1 12.0 Platelet Count 233 179 Mean Platelet Volume 7.9 7.9 Neutrophils (%) (Auto) 73.3 62.7 Lymphocytes (%) (Auto) 16.1 22.0 Monocytes (%) (Auto) 7.5 10.9 Eosinophils (%) (Auto) 2.3 3.5 Basophils (%) (Auto) 0.8 0.9 Neutrophils # (Auto) 6.3 4.3 Lymphocytes # (Auto) 1.4 1.5 Monocytes # (Auto) 0.6 0.7 Eosinophils # (Auto) 0.2 0.2 Basophils # (Auto) 0.1 0.1 CBC Comment DIFF FINAL DIFF FINAL Differential Comment Blood Urea Nitrogen 10 9 Creatinine 0.83 0.57 Random Glucose 106 94 Total Protein 8.2 Albumin 3.4 Calcium Level 8.3 7.6 Alkaline Phosphatase 94 Aspartate Amino Transf (AST/SGOT) 38 Alanine Aminotransferase (ALT/SGPT) 81 Total Bilirubin 0.5 Sodium Level 136 138 Potassium Level 3.5 3.3 Chloride Level 103 106 Carbon Dioxide Level 25.3 23.7 Anion Gap 8 8 Estimat Glomerular Filtration Rate 79 121 Lipase 83 Urine Color YELLOW Urine Turbidity CLOUDY Urine pH 5.5 Urine Specific [place] 1.017 Urine Protein TRACE Urine Glucose (UA) NEG Urine Ketones NEG Urine Occult Blood LARGE Urine Nitrite POS Urine Bilirubin NEG Urine Leukocyte Esterase LARGE Urine RBC 10-14 Urine WBC 100-200 Urine WBC Clumps FEW Urine Squamous Epithelial Cells > 8 Urine Bacteria MANY Urine Hyaline Casts Microscopic Urinalysis Comment CULTURE INDICATED Date/Time Source Procedure Growth Status 01/24/17 21:20 Blood Peripheral Aerobic Blood Culture Pending Received 01/24/17 21:20 Blood Peripheral Anaerobic Blood Culture Pending Received 01/24/17 20:45 Urine Clean Catch Urine Culture Pending Received Result Diagram: 01/25/17 0535 01/25/17 0535 Imaging Last Impressions Abdomen/Pelvis CT 01/24/17 0000 Signed Impressions: Service Date/Time: , January 24, 2017 21:33 - CONCLUSION: Mild hydronephrosis, hydroureter and perinephric edema on the left of unclear etiology. The differential would include a recently passed calculus, a radiolucent stone and pyelonephritis. MD Billie Rehman VTE Risk Assessment Caprini VTE Risk Assessment: No/Low Risk (score <= 1) Caprini Risk Assessment Model Point Value = 1 Point Value = 2 Point Value = 3 Point Value = 5 Age 41-60 Minor surgery BMI > 25 kg/m2 Swollen legs Varicose veins or History of unexplained or recurrent spontaneous Oral contraceptives or hormone replacement Sepsis (< 1 month) Serious lung disease, including pneumonia (< 1 month) Abnormal pulmonary function Acute myocardial infarction Congestive heart failure (< 1 month) History of inflammatory bowel disease Medical patient at bed rest Age 61-74 Arthroscopic surgery Major open surgery (> 45 min) Laparoscopic surgery (> 45 min) Malignancy Confined to bed (> 72 hours) Immobilizing plaster cast Central venous access Age >= 75 History of VTE Family history of VTE Factor V Leiden Prothrombin [id number] Lupus anticoagulant Anticardiolipin antibodies Elevated serum homocysteine Heparin-induced thrombocytopenia Other congenital or acquired thrombophilia Stroke (< 1 month) Elective arthroplasty Hip, pelvis, or leg fracture Acute spinal cord injury (< 1 month) Prophylaxis Regimen Total Risk Factor Score Risk Level Prophylaxis Regimen 0-1 Low Early ambulation 2 Moderate Order ONE of the following: *Sequential Compression Device (SCD) *Heparin 5000 units SQ BID 3-4 Higher Order ONE of the following medications: *Heparin 5000 units SQ TID *Enoxaparin/Lovenox 40 mg SQ daily (WT < 150 kg, CrCl > 30 mL/min) *Enoxaparin/Lovenox 30 mg SQ daily (WT < 150 kg, CrCl > 10-29 mL/min) *Enoxaparin/Lovenox 30 mg SQ BID (WT < 150 kg, CrCl > 30 mL/min) AND/OR *Sequential Compression Device (SCD) 5 or more Highest Order ONE of the following medications: *Heparin 5000 units SQ TID (Preferred with Epidurals) *Enoxaparin/Lovenox 40 mg SQ daily (WT < 150 kg, CrCl > 30 mL/min) *Enoxaparin/Lovenox 30 mg SQ daily (WT < 150 kg, CrCl > 10-29 mL/min) *Enoxaparin/Lovenox 30 mg SQ BID (WT < 150 kg, CrCl > 30 mL/min) AND *Sequential Compression Device (SCD) Assessment and Plan Assessment and Plan Hydronephrosis, hydroureter, perinephric edema Could be secondary to passed stone, radiolucent stone, pyelonephritis CT scan did indicate hydronephrosis, hydroureter, perinephric edema on the left with unclear etiology Continue IV fluids Consulted urology for recommendations Continue pain control Urinary tract infection/Pyelonephritis Patient was given Rocephin in emergency department Patient continued on Cipro Await urine culture for appropriate antibiotics Hypokalemia Continue monitor and replace as needed Chronic smoker Patient counseled on cessation Nicotine patch started DVT prevention: Low risk, early ambulation This note was transcribed by manisha aKye. I, Dr. Clement Gonzales personally performed the history, physical exam, and medical decision making; and confirmed the accuracy of the information in the transcribed note. Authenticated by Dr. Clement Gonzales on 01/25/17 at 10:54. Discussed Condition With Patient, nursing staff, and friend at bedside Isidoro Kaye Jan 25, 2017 11:01 Clement Perez MD Jan 25, 2017 11:58
[2017-01-25] MEDS ORDERED: POTASSIUM CHLORIDE 20 MEQ CONTROLLED RELEASE TAB PO ONE (11:30)
[2017-01-25] MEDS: NS + KCL 20 MEQ INJ 1,000 ML IV SCH ×2 (12:24→22:20)
[2017-01-25] MEDS ORDERED: oxyCODONE/ACETAMINOPHEN 5 MG/325 MG TAB PO PRN (12:30)
[2017-01-25] MEDS: oxyCODONE/ACETAMINOPHEN 5 MG/325 MG TAB PO PRN ×3 (13:22→22:39)
--- NOTE | 2017-01-25 18:30 | MB ---
cc: LIONEL STOCK DATE OF CONSULTATION 01/25/17 HISTORY OF PRESENT ILLNESS Ms. Verma is a 36-year-old female presented with some mild left-sided flank pain over the last few days, states the pain has been intermittent in nature, radiating from the lower left quadrant to the left flank. She did have some nausea but denied any fever or chills or gross hematuria. She denies any prior history of stones. She states in the past she has had a urinary tract infection but none recently. CT scan demonstrated in the ER suggested a possibly recently passed stone versus pyelonephritis with mild hydroureter noted. PAST MEDICAL HISTORY Her medical history includes carpal tunnel. History of ovarian cyst. PAST SURGICAL HISTORY Noted for hysterectomy and a LEEP procedure as well as a trigger finger. MEDICATIONS For medications please refer to the chart. ALLERGIES She has no known drug allergies. FAMILY HISTORY Noted for hypertension and dementia. SOCIAL HISTORY She smokes a half-pack of cigarettes a day and drinks occasionally. Denies any illicit drug use. REVIEW OF SYSTEMS Notes left-sided flank pain with lower abdominal pain and nausea. Denies fever or chills, gait disturbances, bleeding disorders. Denies chest pain. Denies shortness of breath. Denies diarrhea or constipation at present. Denies any skin lesions. Denies any psychiatric problems. Denies heat or cold intolerance. The remaining review of systems were reviewed and are negative. PHYSICAL EXAMINATION VITAL SIGNS: Temperature is 97.9, heart rate 86, respiratory rate 20, 113/77 is her blood pressuer. GENERAL: She is a well-developed, well-nourished 36-year-old female in no acute stress. HEENT: Normocephalic, atraumatic. Pupils equal, round, reactive to light. NECK: Neck is supple. HEART: Rate regular rate and rhythm. LUNGS: Clear. ABDOMEN: Soft, nontender, nondistended. There is mild left CVA tenderness noted. : Normal female external genitalia is noted. EXTREMITIES: Show no cyanosis, clubbing or edema. LABORATORY DATA White count is noted to be 6.9, hemoglobin 12.4, hematocrit 35.7, platelet count 179, sodium is 138, potassium 3.3, chloride 106, CO2 is 23.7, BUN of 9, creatinine 0.57, glucose 121. Urinalysis shows 100-200 white cells with 10-14 red cells per high-power field, nitrite is positive. IMAGING STUDIES Again, imaging studies suggest mild left hydronephrosis, hydroureter with perinephric edema. Differential includes recently passed stone and pyelonephritis. ASSESSMENT This is a 36-year-old female with probable pyelonephritis or recently passed stone. Continue with IV fluids, pain management and IV antibiotics. No intervention required at this time. If stone is found would send for analysis. Thank you for the consult and allowing me to participate in the care of this patient. Lionel JAVED/STEFANIE /2:01 PM /6:11 PM
[2017-01-26 01:53] VITALS: BP 106/80; PULSE 82; RESP 14; TEMP 97.7; O2SAT 95
[2017-01-26] MEDS: MORPHINE SULFATE 4 MG/ML INJ IV PUSH PRN (02:02)
[2017-01-26] MEDS: oxyCODONE/ACETAMINOPHEN 5 MG/325 MG TAB PO PRN ×4 (07:44→20:45)
[2017-01-26] MEDS: REMOVE OLD PATCH T-DERMAL SCH (07:44)
[2017-01-26] MEDS: SODIUM CHLORIDE 0.9% FLUSH 10 ML FLUSH IV FLUSH SCH ×4 (07:44→20:47)
[2017-01-26] MEDS: NICOTINE 14 MG/24 HR PATCH T-DERMAL SCH (07:44)
[2017-01-26 08:00] VITALS: BP 137/96; PULSE 87; RESP 17; TEMP 98.5; O2SAT 94
[2017-01-26] MEDS: NS + KCL 20 MEQ INJ 1,000 ML IV SCH ×2 (10:02→20:41)
[2017-01-26] MEDS: CIPROFLOXACIN 400 MG PREMIX 200 ML IV SCH ×2 (10:09→22:58)
[2017-01-26 10:37] LABS: BICARBONATE 23.5 MEQ/L (21.0-32.0)
[2017-01-26 12:00] VITALS: BP 132/81; PULSE 92; RESP 18; TEMP 98.3; O2SAT 96
[2017-01-26] MEDS: DOCUSATE SODIUM 50 MG/SENNA 8.6 MG TAB PO SCH (12:04)
--- NOTE | 2017-01-26 15:23 | HHI.PR ---
Subjective Remarks Patient complains of cramps and still c/o flank pain denies fevers/chills denies cp/sob denies diarrhea Objective Vitals Vital Signs Date Time Temp Pulse Resp B/P (MAP) Pulse Ox O2 Delivery O2 Flow Rate FiO2 01/26/17 12:00 98.3 92 18 132/81 (98) 96 01/26/17 09:00 16 01/26/17 08:00 98.5 87 17 137/96 (110) 94 01/26/17 02:15 18 01/26/17 01:53 97.7 82 14 106/80 (89) 95 01/25/17 20:10 97.3 86 16 115/84 (94) 100 01/25/17 19:50 100 21 01/25/17 17:24 100 01/25/17 17:03 97.9 85 20 112/78 (89) 100 I/O 01/25/17 01/25/17 01/25/17 01/26/17 01/26/17 01/26/17 07:00 15:00 23:00 07:00 15:00 23:00 Intake Total 1250 ml 811 ml 1000 ml 946 ml 250 ml Balance 1250 ml 811 ml 1000 ml 946 ml 250 ml Intake Oral 250 ml IV Total 1000 ml 811 ml 1000 ml 946 ml 250 ml # Voids 7 1 Result Diagram: 01/25/17 0535 01/26/17 1017 Imaging Last Impressions Abdomen/Pelvis CT 01/24/17 0000 Signed Impressions: Service Date/Time: January 21:33 - CONCLUSION: Mild hydronephrosis, hydroureter and perinephric edema on the left of unclear etiology. The differential would include a recently passed calculus, a radiolucent stone and pyelonephritis. Tan Louie MD Objective Remarks AAOx3 with mild distress due to pain S12S2 (+) Clear lungs BL mild tenderness to palpation of lower abdomen nop edema in lower extremities Procedures None Medications and IVs Current Medications Medications (Trade) Dose Ordered Sig/Jake Route Start Time Stop Time Status Last Admin (NS Flush) 2 ml BID IV FLUSH 01/25/17 09:00 (NS Flush) 2 ml UNSCH PRN IVF 01/24/17 22:30 (NS Flush) 2 ml UNSCH PRN IV FLUSH 01/24/17 22:30 (NS Flush) 2 ml BID IV FLUSH 01/25/17 09:00 UNV (Narcan Inj) 0.4 mg UNSCH PRN IV PUSH 01/24/17 22:30 Ciprofloxacin/ Dextrose 200 ml @ 200 mls/hr Q12H IV 01/24/17 23:00 01/26/17 10:09 (Habitrol 14 Mg Patch.24 Hr) 1 patch DAILY T-DERMAL 01/25/17 09:00 01/26/17 07:44 Miscellaneous Information 1 DAILY T-DERMAL 01/26/17 09:00 01/26/17 07:44 Potassium Chloride/Sodium Chloride 1,000 ml @ 100 mls/hr Q10H IV 01/25/17 11:30 01/26/17 10:02 (Percocet 5-325 Mg) 1 tab Q4H PRN PO 01/25/17 12:30 (Percocet 5-325 Mg) 2 tab Q4H PRN PO 01/25/17 12:30 01/26/17 12:04 (Morphine Inj) 2 mg Q3H PRN IV PUSH 01/25/17 13:30 01/26/17 02:02 (Maxine-Colace) 2 tab DAILY PO 01/26/17 10:45 01/26/17 12:04 Urinary Catheter: No Vascular Central Line Catheter: No A/P Problem List: (1) Left flank pain ICD Code: R10.9 - Unspecified abdominal pain (2) Hydronephrosis ICD Code: N13.30 - Unspecified hydronephrosis (3) Hydroureter ICD Code: N13.4 - Hydroureter (4) Urinary tract infection ICD Code: N39.0 - Urinary tract infection, site not specified (5) Hypokalemia ICD Code: E87.6 - Hypokalemia Assessment and Plan Hydronephrosis, hydroureter, perinephric edema Secondary to pyelonephritis CT scan did indicate hydronephrosis, hydroureter, perinephric edema on the left with unclear etiology Continue IV fluids Urology consulted - Case discussed with Dr Davis. No urological intervention needed. Continue pain control I will add Levsin for bladder spasms. Urinary tract infection/Pyelonephritis Patient's status post treatment with IV Rocephin in the emergency department. Continue Rocephin Urine culture shows pansensitive Escherichia coli. Hypokalemia Continue monitor and replace as needed Resolved after repletion. Level 4.0 Chronic smoker Patient counseled on cessation Continue nicotine patch DVT prevention: Low risk, early ambulation Discharge Planning Possible discharge later today versus in a.m. pending pain control and cessation of bladder spasms. Clement Perez MD Jan 26, 2017 15:23
[2017-01-26 16:00] VITALS: BP 115/82; PULSE 79; RESP 17; TEMP 98; O2SAT 96
[2017-01-26] MEDS: HYOSCYAMINE 0.125 MG TAB PO PRN ×2 (16:45→20:45)
[2017-01-26 20:10] VITALS: BP 117/79; PULSE 84; RESP 16; TEMP 98.2; O2SAT 97
[2017-01-27 00:10] VITALS: BP 126/90; PULSE 83; RESP 14; TEMP 98.6; O2SAT 99
[2017-01-27] MEDS: oxyCODONE/ACETAMINOPHEN 5 MG/325 MG TAB PO PRN ×3 (00:59→11:18)
[2017-01-27] MEDS: NS + KCL 20 MEQ INJ 1,000 ML IV SCH ×2 (03:30→11:15)
[2017-01-27] MEDS: NICOTINE 14 MG/24 HR PATCH T-DERMAL SCH (07:57)
[2017-01-27] MEDS: SODIUM CHLORIDE 0.9% FLUSH 10 ML FLUSH IV FLUSH SCH ×2 (07:57)
[2017-01-27] MEDS: REMOVE OLD PATCH T-DERMAL SCH (07:57)
[2017-01-27] MEDS: DOCUSATE SODIUM 50 MG/SENNA 8.6 MG TAB PO SCH (07:57)
[2017-01-27 08:00] VITALS: BP 126/90; PULSE 76; RESP 16; TEMP 98.2; O2SAT 96
[2017-01-27] MEDS: CIPROFLOXACIN 400 MG PREMIX 200 ML IV SCH (11:19)
[2017-01-27] MEDS ORDERED: LEVS0.123 PO (11:25)
[2017-01-27] MEDS ORDERED: CIPR500T2 PO (11:25)
[2017-01-27] MEDS ORDERED: OXYC1TAB63 PO (11:25)
--- NOTE | 2017-01-27 11:25 | HHI.DCPOC ---
Discharge Care Plan Diagnosis: (1) Hypokalemia (2) Urinary tract infection (3) Hydroureter (4) Hydronephrosis Goals to Promote Your Health * To prevent worsening of your condition and complications * To maintain your health at the optimal level Directions to Meet Your Goals Take your medications as prescribed Follow your dietary instruction Follow activity as directed Keep your appointments as scheduled Take your immunizations and boosters as scheduled If your symptoms worsen call your PCP, if no PCP go to Urgent Care Center or Emergency Room Smoking is Dangerous to Your Health. Avoid second hand smoke Call the 24-hour hour crisis hotline for domestic abuse at Clement Perez MD Jan 27, 2017 11:25
--- NOTE | 2017-01-27 11:38 | HHI.DS ---
Discharge Summary Admission Date Jan 24, 2017 at 22:28 Discharge Date: Jan 27, 2017 Admitting Diagnosis pyelonephritis (1) Acute pyelonephritis ICD Code: N10 - Acute pyelonephritis Diagnosis: Principal (2) Left flank pain ICD Code: R10.9 - Unspecified abdominal pain Diagnosis: Principal (3) Hydronephrosis ICD Code: N13.30 - Unspecified hydronephrosis Diagnosis: Principal (4) Hydroureter ICD Code: N13.4 - Hydroureter Diagnosis: Principal (5) Urinary tract infection ICD Code: N39.0 - Urinary tract infection, site not specified Diagnosis: Principal (6) Hypokalemia ICD Code: E87.6 - Hypokalemia Diagnosis: Principal Procedures None Brief History - From Admission Written by Isidoro Kaye, acting as scribe for Dr. Rincon on 01/25/17 at 10:40. 36-year-old female with no significant chronic medical illnesses who presented to hospital because acute onset left flank pain. Patient states that she was in her normal state of health until 3 days ago when she had an episode of diarrhea in which she went to the restroom 5 times. After that she started developing some left flank pain and she laid down that evening. She had a difficult time sleeping and when she got up the next day she took her son to school and was not able to do anything throughout the day because of the flank pain. When her came home she came to the hospital for evaluation. The pain was described as a intermittent colic type pain in the left flank, pain started in the left lower abdomen and radiated up to the left flank. She had some nausea, denied any fever, chills, hematuria. She did have some dysuria. She states that she has not had any recurrent diarrhea. She has had a normal bowel movement. Patient had workup done in emergency department and CT scan did show hydronephrosis, hydroureter, perinephritic edema. This possibly could be related to a passed stone, radiolucent stone, and possible pyelonephritis. It was recommended by ER physician that the patient be observed in the hospital for further evaluation and management. CBC/BMP: 01/25/17 0535 01/26/17 1017 Significant Findings Laboratory Tests Test 01/24/17 19:30 01/24/17 20:45 01/25/17 05:35 01/26/17 10:17 Neutrophils (%) (Auto) 73.3 % (16.0-70.0) Calcium Level 8.3 MG/DL (8.5-10.1) 7.6 MG/DL (8.5-10.1) 8.2 MG/DL (8.5-10.1) Aspartate Amino Transf (AST/SGOT) 38 U/L (15-37) Alanine Aminotransferase (ALT/SGPT) 81 U/L (10-53) Estimat Glomerular Filtration Rate 79 ML/MIN (>89) Urine Turbidity CLOUDY (CLEAR) Urine Occult Blood LARGE (NEG) Urine Nitrite POS (NEG) Urine Leukocyte Esterase LARGE (NEG) Urine RBC 10-14 /hpf (0-3) Urine WBC 100-200 /hpf (0-5) Urine WBC Clumps FEW (NONE) Urine Squamous Epithelial Cells > 8 /hpf (0-5) Urine Bacteria MANY /hpf (NONE) Red Blood Count 3.87 MIL/MM3 (4.00-5.30) Monocytes (%) (Auto) 10.9 % (0.0-8.0) Potassium Level 3.3 MEQ/L (3.5-5.1) Blood Urea Nitrogen 6 MG/DL (7-18) Imaging Last Impressions Abdomen/Pelvis CT 01/24/17 0000 Signed Impressions: Service Date/Time: January 21:33 - CONCLUSION: Mild hydronephrosis, hydroureter and perinephric edema on the left of unclear etiology. The differential would include a recently passed calculus, a radiolucent stone and pyelonephritis. Tan Louie MD PE at Discharge AAOx3 with mild distress due to pain S12S2 (+) Clear lungs BL mild tenderness to palpation of lower abdomen nop edema in lower extremities Pt update on day of discharge Patient feels much better, only feels some discomfort over the lower abdomen and flank. Denies fevers or chills, nausea vomiting. The patient's tolerating diet and once home. I will discharge the patient home on ciprofloxacin X 10 days. Hospital Course The patient was admitted to the medical floor, started on IV fluids and IV ciprofloxacin. CT of the abdomen and pelvis showed hydronephrosis, hydroureter and perinephric edema likely secondary to pyelonephritis. Urology was consulted and did not recommend any urological intervention. The case was discussed personally by me with Dr. Davis and changes observed on CT likely secondary to pyelonephritis. Pain control was provided with IV morphine and oral opiates. Since patient was complaining of some bladder spasms Levsin was added to the treatment as needed. Urine culture showed pansensitive Escherichia coli. A H were monitored throughout hospital stay. Patient was found to be hypokalemic and this was repleted orally and BMP was monitored. Patient was advised smoking cessation since she is a current smoker and was placed on a nicotine patch on admission. Patient was placed on SCDs for DVT prophylaxis. Pt Condition on Discharge: Stable Discharge Disposition: Discharge Home Discharge Time: <= 30 minutes Discharge Instructions DIET: Follow Instructions for: As Tolerated, No Restrictions Activities you can perform: Regular-No Restrictions Activities to Avoid: Prolonged Standing, Strenuous Activity Follow up Referrals: PCP Follow-up - 1 Week New Medications: Ciprofloxacin (Ciprofloxacin) 500 Mg Tab 500 MG PO BID for Infection, #20 TAB 0 Refills Hyoscyamine (Levsin) 0.125 Mg Tab 0.125 MG PO Q4H PRN for BLADDER SPASMS, #10 TAB Oxycodone-Acetaminophen (Oxycodone-Acetaminophen) 5-325 mg Tab 1 TAB PO Q4H PRN for PAIN SCALE 1 TO 10, #30 TAB Continued Medications: Cyclobenzaprine (Flexeril) 10 Mg Tab 10 MG PO TID for Muscle Spasm, #20 TAB 0 Refills Methocarbamol (Robaxin) 750 Mg Tab 750 MG PO Q8HR for Muscle Spasm, #21 TAB 0 Refills Discontinued Medications: Ibuprofen (Ibuprofen) 600 Mg Tab 600 MG PO Q8HR PRN for PAIN, #21 TAB 0 Refills Clement Perez MD Jan 27, 2017 11:38
[2017-01-27 12:00] VITALS: BP 122/82; PULSE 72; RESP 18; TEMP 98.1; O2SAT 95
== END 2017-01-27 13:30 | disposition home or self-care (01) ==
LOC: PHED 17:37 → PHEDA 22:28 → PHEDH 01-25 03:59 → PH3B 01-25 07:43
PROVIDERS: ADMIT Hospitalist; ATTEND Hospitalist
DX: N10 Acute pyelonephritis (principal); N39.0 Urinary tract infection, site not specified; B96.20 Unspecified Escherichia coli [E. coli] as the cause of diseases classified elsewhere; E87.6 Hypokalemia; R10.32 Left lower quadrant pain; R11.0 Nausea; R19.7 Diarrhea, unspecified; F17.210 Nicotine dependence, cigarettes, uncomplicated; G43.909 Migraine, unspecified, not intractable, without status migrainosus
CPT/HCPCS: 74176; 80048; 80053; 81001; 83690; 85025; 87040; 87077; 87086; 87186; 96361; 96365; 96366; 96375; 96376; 99285; G0378; J0696; J0744; J1885; J2270; J2405; J3480; J7030

== ENCOUNTER 2017-03-24 14:50 | Emergency (ER) | payer MEDICAID ==
[~2017-03-24] VITALS: Ht 160 cm; Wt 75.0 kg
[~2017-03-24 14:50] MED LIST changes: +CIPR500T2 PO; +CYCL10TA PO; -CYCL1TAB29 PO; -IBUP-232 PO; +LEVS0.123 PO; +OXYC1TAB63 PO
[2017-03-24 14:57] VITALS: BP 123/83; PULSE 92; RESP 16; TEMP 98.3; O2SAT 99
[2017-03-24] MEDS ORDERED: PENI500T PO (15:15)
[2017-03-24] MEDS ORDERED: IBUP1TAB7 PO (15:15)
[2017-03-24] MEDS ORDERED: PRED20 PO (15:42)
[2017-03-24] MEDS ORDERED: KETOROLAC TROMETHAMINE 60 MG/2 ML (IM) VIAL IM ONE (15:45)
[2017-03-24] MEDS ORDERED: DEXAMETHASONE SOD PHOS 20 MG/5 ML VIAL IM ONE (15:45)
--- NOTE | 2017-03-24 15:48 | PD ---
HPI Chief Complaint: Edema Time Seen by Provider: 15:40 Travel History International Travel<30 days: No Contact w/Intl Traveler<30days: No Traveled to known affect area: No History of Present Illness HPI 36-year-old female with history of carpal tunnel in the right arm emergency Department with worsening right elbow and distal upper arm pain and stiffness. 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 Patient denies worsening numbness or tingling in the distal arm. She denies any other constitutional symptoms at this fever or infection. Pain is currently 8 out of 10 in not improved with ibuprofen 800 mg 3 times daily. It is worse with movement and gripping. Patient has no known drug allergies. PFSH Past Medical History Hx Anticoagulant Therapy: No Arthritis: Yes Asthma: Yes (ALLERGY INDUCED ) Cancer: No (STATES OVARIAN CA BUT NO MALIGNANCY UPON REMOVAL ) Cardiovascular Problems: No Chemotherapy: No Diabetes: No Diminished Hearing: No Endocrine: No Gastrointestinal Disorders: No Genitourinary: Yes (PYELONEPHRITIS WITH THIS ADMISSION ) Immune Disorder: No Musculoskeletal: Yes Neurologic: Yes Psychiatric: No Reproductive: Yes (H(X) OVARIAN CYSTS ) Respiratory: Yes Immunizations Current: Yes Migraines: Yes Radiation Therapy: No ?: Not : 4 Para: 2 Miscarriage: 1 : 1 Ovarian Cysts: Yes Tubal Ligation: Yes Past Surgical History Ear Surgery: No Endocrine Surgery: No Eye Surgery: No Gynecologic Surgery: Yes Hysterectomy: Yes Oral Surgery: No Other Surgery: Yes Social History Alcohol Use: Yes (Occ.) Tobacco Use: Yes (1/2 PPD-currently quitting) Substance Use: No Allergies-Medications (Allergen,Severity, Reaction): Coded Allergies: No Known Allergies (Verified Adverse Reaction, Unknown, 03/24/17) Reported Meds & Prescriptions Reported Meds & Active Scripts Active Prednisone 20 Mg Tab 20 Mg PO BID 7 Days Reported Penicillin V Potassium 500 Mg Tab 500 Mg PO Q8H Ibuprofen 800 Mg Tab 800 Mg PO Q8H PRN Review of Systems Except as stated in HPI: all other systems reviewed are Neg General / Constitutional: No: Fever Eyes: No: Visual changes HENT: No: Headaches Cardiovascular: No: Chest Pain or Discomfort Respiratory: No: Shortness of Breath Gastrointestinal: No: Abdominal Pain Genitourinary: No: Dysuria Musculoskeletal: Positive: Myalgias, Arthralgias, Limited ROM, Pain (see history present illness) Skin: No Rash Neurologic: No: Weakness Psychiatric: No: Depression Endocrine: No: Polydipsia Hematologic/Lymphatic: No: Easy Bruising Physical Exam Narrative GENERAL: Patient appears in mild to moderate distress. SKIN: Warm and dry. Normal color. Normal turgor. No rash. HEAD: Atraumatic. Normocephalic. EYES: Pupils equal and round. No scleral icterus. No injection or drainage. ENT: No nasal bleeding or discharge. Mucous membranes pink and moist. Pharynx is clear. Airway is patent. NECK: Trachea midline. Supple nontender.. CARDIOVASCULAR: Regular rate and rhythm. RESPIRATORY: No accessory muscle use. Clear to auscultation. Breath sounds equal bilaterally. MUSCULOSKELETAL: Extremities without clubbing, cyanosis, or edema. No obvious deformities. The right arm appears normal without significant swelling. Patient has tenderness with palpation to the right lateral and medial epicondyles. As well as the distal triceps extensor tendon. 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 Neurovascular exam is normal distally. NEUROLOGICAL: Awake and alert. No obvious cranial nerve deficits. Motor grossly within normal limits. Five out of 5 muscle strength in the arms and legs. Normal speech. PSYCHIATRIC: Appropriate mood and affect; insight and judgment normal. Data Data Last Documented VS Vital Signs Date Time Temp Pulse Resp B/P (MAP) Pulse Ox O2 Delivery O2 Flow Rate FiO2 03/24/17 14:57 98.3 92 16 123/83 (96) 99 Orders Orders Ketorolac Inj (Toradol Inj) (03/24/17 15:45) Dexamethasone Inj (Decadron Inj) (03/24/17 15:45) [facility] Medical Decision Making Medical Screen Exam Complete: Yes Emergency Medical Condition: Yes Differential Diagnosis Tenosynovitis. Tennis elbow. Epicondylitis. Narrative Course Patient is felt to have both medial and lateral epicondylitis and tenosynovitis of the elbow. Patient is given Toradol 60 mg IM as well as 10 mg Decadron IM. Patient will be continued on prednisone 20 mg twice a day for 7 days. Patient is to do hot soaks followed by ice as discussed. Patient is to take extra strength Tylenol as well as needed for pain. Work note is given 5 days. Patient follow-up with her primary care physician or return to emergency department as needed. Diagnosis Primary Impression: Tenosynovitis of elbow Additional Impressions: Lateral epicondylitis (tennis elbow) Qualified Codes: M77.11 - Lateral epicondylitis, right elbow Epicondylitis elbow, medial Qualified Codes: M77.01 - Medial epicondylitis, right elbow Referrals: [facility] Patient Instructions: General Instructions, Tendinitis (ED), Tennis Elbow (ED) , Tennis Elbow Exercises (GEN) Additional Instructions: Patient is felt to have both medial and lateral epicondylitis and tenosynovitis of the elbow. Patient is given Toradol 60 mg IM as well as 10 mg Decadron IM. Patient will be continued on prednisone 20 mg twice a day for 7 days. Patient is to do hot soaks followed by ice as discussed. Patient is to take extra strength Tylenol as well as needed for pain. Work note is given 5 days. Patient follow-up with her primary care physician or return to emergency department as needed. Med/Other Pt SpecificInfo: Prescription(s) given Scripts Prednisone (Prednisone) 20 Mg Tab 20 MG PO BID for 7 Days, #14 TAB 0 Refills Prov: Yogesh Pereira MD 03/24/17 Disposition: 01 DISCHARGE HOME Condition: Stable Marky Dowell Mar 24, 2017 15:48
== END 2017-03-24 16:09 | disposition home or self-care (01) ==
LOC: PHEFT 14:50
DX: M77.11 Lateral epicondylitis, right elbow (principal); M77.01 Medial epicondylitis, right elbow; F17.200 Nicotine dependence, unspecified, uncomplicated
CPT/HCPCS: 96372; 99283; J1100; J1885

== ENCOUNTER 2017-04-03 15:11 | Emergency (ER) | payer MEDICAID ==
[~2017-04-03] VITALS: Ht 160 cm; Wt 77.3 kg
[~2017-04-03 15:11] MED LIST changes: -CIPR500T2 PO; -CYCL10TA PO; +IBUP1TAB7 PO; -LEVS0.123 PO; -OXYC1TAB63 PO; +PENI500T PO; +PRED20 PO; -ROBA750T PO
[2017-04-03 15:21] VITALS: BP 127/71; PULSE 99; RESP 16; TEMP 98; O2SAT 98
[2017-04-03] MEDS ORDERED: AMOX500T PO (15:52)
--- NOTE | 2017-04-03 15:52 | PD ---
HPI Chief Complaint: ENT Complaint Time Seen by Provider: 15:39 Travel History International Travel<30 days: No Contact w/Intl Traveler<30days: No Traveled to known affect area: No History of Present Illness HPI 36 year old female here with right ear pain 3 days. She denies fever or chills. She denies injury or trauma to the ear. She reports a mild sore throat and nasal congestion. Symptom severity is moderate. No alleviating factors. 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 ) Immune Disorder: No Musculoskeletal: Yes Neurologic: Yes Psychiatric: No Reproductive: Yes (H(X) OVARIAN CYSTS ) Respiratory: Yes Immunizations Current: Yes Migraines: Yes Radiation Therapy: No Tetanus Vaccination: < 5 Years Influenza Vaccination: No ?: Not : 4 Para: 2 Miscarriage: 1 : 1 Ovarian Cysts: Yes Tubal Ligation: Yes Past Surgical History Ear Surgery: No Endocrine Surgery: No Eye Surgery: No Gynecologic Surgery: Yes (hysterectomy and ovarian cyst removal) Hysterectomy: Yes Oral Surgery: No Other Surgery: Yes Social History Alcohol Use: Yes (Occ.) Tobacco Use: Yes (4cigs daily/trying to quit) Substance Use: No Allergies-Medications (Allergen,Severity, Reaction): Coded Allergies: No Known Allergies (Verified Adverse Reaction, Unknown, 04/03/17) Reported Meds & Prescriptions Reported Meds & Active Scripts Active Amoxicillin 500 Mg Tab 500 Mg PO TID 10 Days Reported Ibuprofen 800 Mg Tab 800 Mg PO Q8H PRN Review of Systems Except as stated in HPI: all other systems reviewed are Neg Physical Exam Narrative GENERAL: Well-nourished, well-developed patient. SKIN: Focused skin assessment warm/dry. HEAD: Normocephalic. EYES: No scleral icterus. No injection or drainage. EAR: Right TM erythema, bulging, loss of landmarks no perforation. The mastoid tenderness. NECK: Supple, trachea midline. No JVD or lymphadenopathy. CARDIOVASCULAR: Regular rate and rhythm without murmurs, gallops, or rubs. RESPIRATORY: Breath sounds equal bilaterally. No accessory muscle use. Data Data Last Documented VS Vital Signs Date Time Temp Pulse Resp B/P (MAP) Pulse Ox O2 Delivery O2 Flow Rate FiO2 04/03/17 15:21 98.0 99 16 127/71 (89) 98 Orders Orders Ed Discharge Order (04/03/17 15:53) MDM Medical Decision Making Medical Screen Exam Complete: Yes Emergency Medical Condition: Yes Differential Diagnosis Acute otitis media, otitis externa, URI Narrative Course 36-year-old female here with right ear pain 3 days. She is well-appearing. On exam she has right TM erythema, bulging, loss of landmarks. She'll be treated for acute otitis media. Patient reports getting a yeast infection each time she uses antibiotics. She is requesting Diflucan. Diagnosis Primary Impression: Otitis media Qualified Codes: H66.90 - Otitis media, unspecified, unspecified ear Referrals: [facility] Departure Forms: Tests/Procedures, Work Release Enter return to work date: Apr 05, 2017 Additional Instructions: Take the antibiotics as prescribed. Take [id number] Tylenol or Motrin as needed for pain. Scripts Fluconazole (Diflucan) 150 Mg Tab 150 MG PO ONCE for Infection, #1 TAB 0 Refills Prov: Yaritza Luna 04/03/17 Amoxicillin (Amoxicillin) 500 Mg Tab 500 MG PO TID for Infection for 10 Days, TAB 0 Refills Prov: Yaritza Luna 04/03/17 Disposition: 01 DISCHARGE HOME Condition: Stable Yaritza Luna Apr 03, 2017 15:52
[2017-04-03] MEDS ORDERED: DIFL150T PO (16:02)
== END 2017-04-03 16:03 | disposition home or self-care (01) ==
LOC: PHEFT 15:11
DX: H66.91 Otitis media, unspecified, right ear (principal); Z72.0 Tobacco use
CPT/HCPCS: 99284

== ENCOUNTER 2017-05-09 01:18 | Emergency (ER) | payer MEDICAID ==
[~2017-05-09] VITALS: Ht 160 cm; Wt 80.0 kg
[~2017-05-09 01:18] MED LIST changes: +AMOX500T PO; +DIFL150T PO; -PENI500T PO; -PRED20 PO
[2017-05-09 01:19] VITALS: BP 142/92; PULSE 100; RESP 16; TEMP 97.9; O2SAT 100
[2017-05-09] MEDS ORDERED: LOPERAMIDE HCL 2 MG CAP PO ONE (02:15)
[2017-05-09] MEDS ORDERED: KETOROLAC TROMETHAMINE 30 MG/ML (IVP) VIAL IVP ONE (02:15)
[2017-05-09] MEDS ORDERED: SODIUM CHLOR 0.9% 1000 ML INJ 1,000 ML IV ONE (02:15)
[2017-05-09] MEDS ORDERED: ONDANSETRON HCL 4 MG/2 ML VIAL IV ONE (02:15)
[2017-05-09] MEDS ORDERED: ZOFR4TAB3 SL (02:47)
[2017-05-09] MEDS ORDERED: LOPE2CAP PO (02:47)
--- NOTE | 2017-05-09 02:48 | PD ---
HPI Chief Complaint: GI Complaint Time Seen by Provider: 02:04 Travel History International Travel<30 days: No Contact w/Intl Traveler<30days: No Traveled to known affect area: No History of Present Illness HPI 36 year-old woman who presents to the emergency department complaining of nausea vomiting diarrhea. Symptoms started earlier today. She still was sick. Some subjective fevers. No definite sick contacts. Left work. History Past Medical History Medical History: Denies Significant Hx Tetanus Vaccination: < 5 Years Influenza Vaccination: No : 4 Para: 2 Social History Alcohol Use: Yes (Occ.) Tobacco Use: Yes (4cigs daily/trying to quit) Allergies-Medications (Allergen,Severity, Reaction): Coded Allergies: No Known Allergies (Verified Adverse Reaction, Unknown, 05/09/17) Reported Meds & Prescriptions Reported Meds & Active Scripts Active No Active Prescriptions or Reported Medications Review of Systems Except as stated in HPI: all other systems reviewed are Neg Physical Exam Narrative GENERAL: Well-appearing 36 year-old woman from acute distress. SKIN: Focused skin assessment warm/dry. HEAD: Atraumatic. Normocephalic. EYES: Pupils equal and round. No scleral icterus. No injection or drainage. ENT: No nasal bleeding or discharge. Mucous membranes pink and moist. NECK: Trachea midline. No JVD. CARDIOVASCULAR: Regular rate and rhythm. No murmur appreciated. RESPIRATORY: No accessory muscle use. Clear to auscultation. Breath sounds equal bilaterally. GASTROINTESTINAL: Abdomen soft, non-tender, nondistended. Hepatic and splenic margins not palpable. MUSCULOSKELETAL: No obvious deformities. No clubbing. No cyanosis. No edema. NEUROLOGICAL: Awake and alert. No obvious cranial nerve deficits. Motor grossly within normal limits. Normal speech. PSYCHIATRIC: Appropriate mood and affect; insight and judgment normal. Data Data Last Documented VS Vital Signs Date Time Temp Pulse Resp B/P (MAP) Pulse Ox O2 Delivery O2 Flow Rate FiO2 05/09/17 01:19 97.9 100 16 142/92 (109) 100 Room Air Orders Orders Iv Access Insert/Monitor (05/09/17 02:12) Sodium Chlor 0.9% 1000 Ml Inj (Ns 1000 M (05/09/17 02:15) Ketorolac Inj (Toradol Inj) (05/09/17 02:15) Ondansetron Inj (Zofran Inj) (05/09/17 02:15) Loperamide (Imodium) (05/09/17 02:15) [facility] Medical Decision Making Medical Screen Exam Complete: Yes Emergency Medical Condition: Yes Differential Diagnosis Gastroenteritis, infectious gastritis, enteritis, colitis, other Narrative Course Medical decision making INITIAL: Blood pain 36 old woman, nausea by diarrhea. Looks well. Benign exam. Recommend supportive treatment. Diagnosis Primary Impression: Nausea vomiting and diarrhea Additional Instructions: Take Zofran as a for nausea or vomiting. 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 Completely fluids stay well-hydrated. Return to the emergency department for any new or worsening symptoms. Med/Other Pt SpecificInfo: Prescription(s) given Scripts Ondansetron Odt (Zofran Odt) 4 Mg Tab 4 MG SL Q8HR Y for Nausea/Vomiting, #12 TAB 0 Refills Prov: Kyle Chávez MD 05/09/17 Loperamide (Loperamide) 2 Mg Cap 2 MG PO DIRECTED Y for DIARRHEA, #6 CAP 0 Refills One capsule after each loose stool. Not to exceed 8 capsules per day. Prov: Kyle Chávez MD 05/09/17 Disposition: 01 DISCHARGE HOME Condition: Stable Kyle Chávez MD May 09, 2017 02:48
== END 2017-05-09 03:46 | disposition home or self-care (01) ==
LOC: NEPC 01:18
DX: R11.2 Nausea with vomiting, unspecified (principal); R19.7 Diarrhea, unspecified; F17.210 Nicotine dependence, cigarettes, uncomplicated
CPT/HCPCS: 96374; 96375; 99284; J1885; J2405; J7030

== ENCOUNTER 2017-05-19 04:18 | Emergency (ER) | payer MEDICAID ==
[~2017-05-19] VITALS: Ht 160 cm; Wt 78.0 kg
[~2017-05-19 04:18] MED LIST changes: -AMOX500T PO; -DIFL150T PO; -IBUP1TAB7 PO; +LOPE2CAP PO; +ZOFR4TAB3 SL
[2017-05-19 04:21] VITALS: BP 160/102; PULSE 112; RESP 20; TEMP 97.8; O2SAT 100
--- NOTE | 2017-05-19 04:52 | PD ---
HPI Chief Complaint: Oral / Dental Pain or Problem Time Seen by Provider: 04:51 Travel History International Travel<30 days: No Contact w/Intl Traveler<30days: No Traveled to known affect area: No History of Present Illness HPI 36-year-old female presents to emergency department for evaluation of "entire mouth pain." Pain is severe and it radiates to her ears. Patient states it initially started with her left mandibular first molar. She had cracked this a long time ago. It has been painful intermittently since then. She did see a dentist and was on oral antibiotics however due to insurance complication, she states she was unable to get it fixed. She states she was eating on her right side when she began having pain in her right first mandibular molar. She attempted to apply vinegar and states she bleeds this burned her gingiva. She also opened the capsule of ibuprofen and put it on the tooth site and states that this burned her entire mouth. She denies any fever or chills. No new trauma. She has no difficulty eating. She does have dentures on top. She has no other symptoms to report. 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 ) Immune Disorder: No Musculoskeletal: Yes Neurologic: Yes Psychiatric: No Reproductive: Yes (H(X) OVARIAN CYSTS ) Respiratory: Yes Immunizations Current: Yes Migraines: Yes Radiation Therapy: No ?: Not LMP: HYSTERECTOMY : 4 Para: 2 Miscarriage: 1 : 1 Ovarian Cysts: Yes Tubal Ligation: Yes Past Surgical History Ear Surgery: No Endocrine Surgery: No Eye Surgery: No Gynecologic Surgery: Yes (hysterectomy and ovarian cyst removal) Hysterectomy: Yes Oral Surgery: No Other Surgery: Yes Social History Alcohol Use: Yes (Occ.) Tobacco Use: Yes (4cigs daily/trying to quit) Substance Use: No Allergies-Medications (Allergen,Severity, Reaction): Coded Allergies: No Known Allergies (Verified Adverse Reaction, Unknown, 05/19/17) Reported Meds & Prescriptions Reported Meds & Active Scripts Active No Active Prescriptions or Reported Medications Review of Systems Except as stated in HPI: all other systems reviewed are Neg Physical Exam Narrative GENERAL: Well-nourished, well-developed female patient, in no acute distress. SKIN: Focused skin assessment warm/dry. HEAD: Normocephalic.No erythema or edema EYES: No scleral icterus. No injection or drainage. DENTAL: Denies poor dentition. Gingival erythema or edema. Dentures on the top are noted. No malocclusion. ENT: Mucosa pink and moist. No erythema or exudates. No uvular edema. No uvular , palatal, or tonsillar deviation. Airway patent. Nasal turbinates appear normal without nasal blood, purulent drainage or septal hematoma. NECK: Supple, trachea midline. No JVD or lymphadenopathy. CARDIOVASCULAR: Tachycardic rate and rhythm without murmurs, gallops, or rubs. RESPIRATORY: Breath sounds equal bilaterally. No accessory muscle use. Data Data Last Documented VS Vital Signs Date Time Temp Pulse Resp B/P (MAP) Pulse Ox O2 Delivery O2 Flow Rate FiO2 05/19/17 04:21 97.8 112 20 160/102 (121) 100 Room Air Orders Orders Ketorolac Inj (Toradol Inj) (05/19/17 05:00) [facility] Medical Decision Making Medical Screen Exam Complete: Yes Emergency Medical Condition: Yes Medical Record Reviewed: Yes Differential Diagnosis Dental caries versus dental abscess versus pulpitis versus gingivitis Narrative Course 36-year-old female presents to emergency department for evaluation. Patient has a generalized poor dentition. No significant gingival erythema or edema. There is no abscess. Patient is treated for pain here in emergency department. She'll be discharged with Peridex oral rinse and additional pain control. She is instructed to follow-up with a dentist to return immediately with any acute worsening of symptoms. Diagnosis Primary Impression: Dentalgia Additional Impression: Dental caries Referrals: Dentist Primary Care Physician Patient Instructions: Dental Caries (ED), General Instructions Additional Instructions: Follow-up with a dentist as soon as possible Follow-up with her primary care provider Return immediately with any acute worsening of symptoms Med/Other Pt SpecificInfo: Prescription(s) given Scripts Ibuprofen (Ibuprofen) 600 Mg Tab 600 MG PO Q8HR Y for PAIN, #30 TAB 0 Refills Prov: Yas Montague 05/19/17 Tramadol (Tramadol) 50 Mg Tab 50 MG PO Q8H Y for PAIN GREATER THAN 6, #20 TAB 0 Refills Prov: Yas Montague 05/19/17 Chlorhexidine Gluconate (Mouth) Liq (Peridex Liq) 0.12% Soln 15 ML SWISH-SPIT BID, #473 ML 0 Refills Prov: Yas Montague 05/19/17 Disposition: 01 DISCHARGE HOME Condition: Stable Yas Montague May 19, 2017 04:52
[2017-05-19] MEDS ORDERED: KETOROLAC TROMETHAMINE 60 MG/2 ML (IM) VIAL IM ONE (05:00)
[2017-05-19] MEDS ORDERED: IBUP-232 PO (05:11)
[2017-05-19] MEDS ORDERED: PERI0.126 SWISH-SPIT (05:11)
[2017-05-19] MEDS ORDERED: TRAM50TA PO (05:11)
[2017-05-19] MEDS ORDERED: PENI500T PO (13:42)
== END 2017-05-19 05:16 | disposition home or self-care (01) ==
LOC: NEPD 04:18
DX: K02.9 Dental caries, unspecified (principal); M19.90 Unspecified osteoarthritis, unspecified site; J45.909 Unspecified asthma, uncomplicated; F17.210 Nicotine dependence, cigarettes, uncomplicated
CPT/HCPCS: 96372; 99284; J1885

== ENCOUNTER 2017-05-19 12:01 | Emergency (ER) | payer MEDICAID ==
[~2017-05-19] VITALS: Ht 160 cm; Wt 75.0 kg
[~2017-05-19 12:01] MED LIST changes: +IBUP-232 PO; +PERI0.126 SWISH-SPIT; +TRAM50TA PO
[2017-05-19 12:05] VITALS: BP 156/83; PULSE 105; RESP 20; TEMP 97.8; O2SAT 100
[2017-05-19] MEDS ORDERED: PENI500T PO (13:42)
[2017-05-19] MEDS ORDERED: diphenhydrAMINE HCL 50 MG/ML VIAL IM ONE (13:45)
--- NOTE | 2017-05-19 13:46 | PD ---
HPI Chief Complaint: Oral / Dental Pain or Problem Time Seen by Provider: 13:04 Travel History International Travel<30 days: No Contact w/Intl Traveler<30days: No Traveled to known affect area: No History of Present Illness HPI 36-year-old female here with the lateral molar dental pain. Patient was seen at 4 AM this morning for the same complaint. She dropped her prescriptions off at [facility] and felt that the pain was getting worse which prompted her visit to the ER again. She also reports body wide itching without rash. She denies fever, chills, difficulty swallowing. She reports she's had similar pain in the past for dental infections. She believes her tooth is infected is causing the pain. No aggravating or alleviating factors. 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 ) Immune Disorder: No Musculoskeletal: Yes Neurologic: Yes Psychiatric: No Reproductive: Yes (H(X) OVARIAN CYSTS ) Respiratory: Yes Immunizations Current: Yes Migraines: Yes Radiation Therapy: No ?: Not : 4 Para: 2 Miscarriage: 1 : 1 Ovarian Cysts: Yes Tubal Ligation: Yes Past Surgical History Ear Surgery: No Endocrine Surgery: No Eye Surgery: No Gynecologic Surgery: Yes (hysterectomy and ovarian cyst removal) Hysterectomy: Yes Oral Surgery: No Other Surgery: Yes Social History Alcohol Use: Yes (Occ.) Tobacco Use: Yes (4cigs daily/trying to quit) Substance Use: No Allergies-Medications (Allergen,Severity, Reaction): Coded Allergies: No Known Allergies (Verified Adverse Reaction, Unknown, 05/19/17) Reported Meds & Prescriptions Reported Meds & Active Scripts Active Ibuprofen 600 Mg Tab 600 Mg PO Q8HR PRN Tramadol (Tramadol HCl) 50 Mg Tab 50 Mg PO Q8H PRN Peridex Liq (Chlorhexidine Gluconate (Mouth) Liq) 0.12% Soln 15 Ml SWISH-SPIT BID Review of Systems Except as stated in HPI: all other systems reviewed are Neg General / Constitutional: No: Fever Eyes: No: Visual changes HENT: No: Headaches Cardiovascular: No: Chest Pain or Discomfort Respiratory: No: Shortness of Breath Gastrointestinal: No: Abdominal Pain Genitourinary: No: Dysuria Physical Exam Narrative GENERAL: Alert female. Moderately anxious and scratching her arms SKIN: Warm and dry. No rash. HEAD: Atraumatic. Normocephalic. EYES: Pupils equal and round. No scleral icterus. No injection or drainage. ENT: No nasal bleeding or discharge. Mucous membranes pink and moist. MOUTH: Widespread dental decay. Bilateral molars decayed with some mild surrounding gum erythema. Uvula is midline. Airway is patent. NECK: Trachea midline. No JVD. CARDIOVASCULAR: Regular rate and rhythm. RESPIRATORY: No accessory muscle use. Clear to auscultation. Breath sounds equal bilaterally. GASTROINTESTINAL: Abdomen soft, non-tender, nondistended. Data Data Last Documented VS Vital Signs Date Time Temp Pulse Resp B/P (MAP) Pulse Ox O2 Delivery O2 Flow Rate FiO2 05/19/17 12:05 97.8 105 20 156/83 (107) 100 Orders Orders Diphenhydramine Inj (Benadryl Inj) (05/19/17 13:45) [facility] Medical Decision Making Medical Screen Exam Complete: Yes Emergency Medical Condition: Yes Differential Diagnosis dentalgia, dental infection, periodontal disease Narrative Course 36 -year-old female here with dental pain. She was seen at 4 AM for the same complaint. She reports she was previously treated for dental infection with antibiotics and was scheduled to have tooth extraction but was unable to due to insurance purposes. She is having pain in the same site of her previous infection. She denies fever or chills. Patient is anxious and itching. 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 Her vital signs are stable. She is stable and will be discharged home. Diagnosis Primary Impression: Dentalgia Referrals: Dentist Additional Instructions: Schedule a follow-up appointment with her dentist. Medications as prescribed. Scripts Penicillin V Potassium (Penicillin V Potassium) 500 Mg Tab 500 MG PO Q6H for Infection for 7 Days, #28 TAB 0 Refills Prov: Yaritza Luna 05/19/17 Disposition: 01 DISCHARGE HOME Condition: Stable Yaritza Luna May 19, 2017 13:46
== END 2017-05-19 14:10 | disposition home or self-care (01) ==
LOC: PHEFT 12:01
DX: K08.89 Other specified disorders of teeth and supporting structures (principal); Z72.0 Tobacco use
CPT/HCPCS: 96372; 99283; J1200

== ENCOUNTER 2017-09-18 18:13 | Emergency (ER) | payer MEDICAID ==
[2017-09-18] MEDS ORDERED: SODIUM CHLORIDE 0.9% FLUSH 10 ML FLUSH IV FLUSH (18:45)
[2017-09-18] MEDS: ONDANSETRON HCL 4 MG/2 ML VIAL IVP (18:50)
[2017-09-18] MEDS: SODIUM CHLOR 0.9% 1000 ML INJ 1,000 ML IV (18:51)
[2017-09-18 18:59] LABS: AUTOMATED NEUTROPHIL # 4.4 TH/MM3 (1.8-7.7); BASOPHIL # 0.1 TH/MM3 (0-0.2); BASOPHIL % 1.8 % (0.0-2.0); EOSINOPHIL # 0.2 TH/MM3 (0-0.4); EOSINOPHIL % 2.5 % (0.0-4.0); HEMATOCRIT 42.1 % (35.0-46.0); HEMO FLAGS DIFF FINAL; HEMOGLOBIN 14.3 GM/DL (11.6-15.3); LYMPH % 27.6 % (9.0-44.0); MEAN CELL VOLUME 93.5 FL (80.0-100.0); MEAN CORPUSCULAR HEMOGLOBIN 31.7 PG (27.0-34.0); MEAN CORPUSCULAR HGB CONC 33.9 % (32.0-36.0); MONO % 7.5 % (0.0-8.0); MONOCYTE # 0.5 TH/MM3 (0-0.9); NEUT % 60.6 % (16.0-70.0); PLATELET COUNT 280 TH/MM3 (150-450); RED CELL DISTRIBUTION WIDTH 13.4 % (11.6-17.2); WHITE BLOOD COUNT 7.2 TH/MM3 (4.0-11.0)
[2017-09-18 19:07] LABS: CHLORIDE 109 MEQ/L (98-107); POTASSIUM 4.4 MEQ/L (3.5-5.1); SODIUM (NA) 140 MEQ/L (136-145)
[2017-09-18 19:11] LABS: ALBUMIN 3.1 GM/DL (3.4-5.0); ANION GAP 6 MEQ/L (5-15); BICARBONATE 25.5 MEQ/L (21.0-32.0); CALCIUM 8.6 MG/DL (8.5-10.1); GLUCOSE,RANDOM 92 MG/DL (74-106); LIPASE 90 U/L (73-393)
[2017-09-18 19:12] LABS: BLOOD UREA NITROGEN 11 MG/DL (7-18)
[2017-09-18 19:14] LABS: ALT (GPT) 42 U/L (10-53); AST (GOT) 24 U/L (15-37); CREATININE 0.66 MG/DL (0.50-1.00); GLOMERULAR FILTRATION RATE 103 ML/MIN (>89)
[2017-09-18 19:16] LABS: TOTAL BILIRUBIN ADULT 0.3 MG/DL (0.2-1.0); TOTAL PROTEIN 7.3 GM/DL (6.4-8.2)
[2017-09-18 19:17] LABS: ALKALINE PHOSPHATASE 81 U/L (45-117)
== END 2017-09-18 20:56 | disposition home or self-care (01) ==
LOC: PHED 18:13
DX: R11.2 Nausea with vomiting, unspecified (principal); R19.7 Diarrhea, unspecified; M19.90 Unspecified osteoarthritis, unspecified site; J45.909 Unspecified asthma, uncomplicated; F17.210 Nicotine dependence, cigarettes, uncomplicated; Z88.8 Allergy status to other drugs, medicaments and biological substances
CPT/HCPCS: 80053; 83690; 84703; 85025; 96361; 96374; 99284-25